=== PATIENT | male | born 1955 | race Caucasian/White ===

== ENCOUNTER 2023-08-14 16:14 | Observation (INO) ==
--- NOTE | 2023-08-14 16:25 | ED Triage Note ---
Date of Service August 14, 2023 History of Present Illness This patient was briefly evaluated while in triage. An abbreviated physical exam was performed. This patient is a 68-year-old Male who presents to the ED for evaluation of hx of COPD, HTN Was at the MD today for recent COPD exacerbation-sats were low in the office sent here by the doctor patient feels well-better than 5 weeks ago when he was admitted no on chronic oxygen Physical Exam GENERAL: NAD, sats 88-89% CARDIOVASCULAR: RRR RESPIRATORY: diminished but CTA ABDOMEN: BS x 4. Nontender to palpation. Initial orders for labs and / or imaging were placed and patient was placed in the waiting area until a bed is available. Please see further documentation for the full ED course.
--- NOTE | 2023-08-14 17:10 | XRay Report ---
XR chest 1V not portable CLINICAL HISTORY: SOB TECHNIQUE: Single frontal radiograph of the chest was obtained. Comparison: Comparison is made to chest radiograph 07/02/2023 FINDINGS: No lines and tubes are seen. Calcified aortic knob is seen. The lungs are clear. No evidence of pleur al effusion or pneumothorax. IMPRESSION: No acute abnormalities and in particular no radiographic evidence of pneumonia. ACT 112: Negative or not required by law. Electronically signed by: Chase Lambert M.D. 08/14/2023 5:09 PM
[2023-08-14 18:17] LABS: Basophils # (auto) 0.05 K/uL (0.00-0.20); Basophils % (auto) 0.9 %; Eosinophils # (auto) 0.09 K/uL (0.00-0.50); Eosinophils % (auto) 1.6 %; Hematocrit (blood only) 42.9 % (42.0-52.0); Hemoglobin 14.6 g/dl (14.0-18.0); Immature Granulocytes # (auto) 0.03 K/uL (0.01-0.20); Immature Granulocytes % (auto) 0.5 %; Lymphocytes # (auto) 1.19 K/uL (1.20-3.40); Lymphocytes % (auto) 21.8 %; Mean Corpuscular Hemoglobin 31.9 pg (25.0-34.0); Mean Corpuscular Volume 93.9 fL (80.0-100.0); Mean Platelet Volume 9.3 fL (9.4-12.4); Monocytes # (auto) 0.65 K/uL (0.11-0.59); Monocytes % (auto) 11.9 %; Neutrophils # (auto) 3.46 K/uL (1.40-6.50); Neutrophils % (auto) 63.3 %; Platelet Count 178 K/uL (130-400); RDW Coefficient of Variation 12.9 % (11.5-14.5); RDW Standard Deviation 44.3 fL (36.4-46.3); Red Blood Count 4.57 M/uL (4.70-6.10); White Blood Count 5.47 K/ul (4.8-10.8)
[2023-08-14 18:37] LABS: Alanine Aminotransferase 24 U/L (7-52); Albumin Globulin Ratio 1.3 (0.9-2); Alkaline Phosphatase 76 U/L (34-104); Anion Gap 4 (3-11); Aspartate Aminotransferase 28 U/L (13-39); BUN Creatinine Ratio 21.1 (10-20); Bilirubin,Total 0.5 mg/dl (0.2-1.0); Blood Urea Nitrogen 15 mg/dl (6-23); Calcium 9.5 mg/dl (8.6-10.3); Carbon Dioxide 32 mmol/L (21-32); Chloride 102 mmol/L (98-107); Est GFR (Non-African American) 95.7 ml/min; Globulin 3.1 gm/dl (2.5-4.0); Glucose 77 mg/dl (70-99(Fasting)); Potassium 4.1 mmol/L (3.5-5.1); Sodium 138 mmol/L (136-145); Total Protein 7.1 gm/dl (6.0-8.3)
[2023-08-14 18:43] LABS: Troponin I High Sensitivity 5.7 pg/ml (0-20)
[2023-08-14] MEDS ORDERED: ALBUT/IPRATROP 3MG/0.5MG NEB 3 ML VIAL NEB ONE ×2 (19:48→21:29)
[2023-08-14] MEDS ORDERED: methylPREDNISolone 125 MG/2 ML VIAL IV STA (19:48)
[2023-08-14] MEDS ORDERED: MAGNESIUM SULFATE / D5W 1 GM/100 ML BAG IV STA (19:49)
--- NOTE | 2023-08-14 20:41 | Emergency Department Note ---
Impression & Plan Acute respiratory failure with hypoxia, COPD with emphysema, Current smoker ED Provider Note NAME: RADHA SANDERS AGE: 68 SEX: M : 1955 ARRIVES VIA: Walk-In INFORMANT: Patient, ED PROVIDER(S): Rei Bob MD CHIEF COMPLAINT: Shortness of breath, outpatient referral MEDICAL DECISION MAKING: Patient presents due to concern for shortness of breath and associated outpatient referral for hypoxia. Next IV was established and blood work was obtained along with an EKG troponin chest x-ray. The patient's blood work is fairly unremarkable. Triage PO2 was 88%. Patient was ordered DuoNeb treatment as well as IV steroids and magnesium. Patient was also ordered IV fluids. Blood work shows a normal white count H&H and platelet count. Kidney function is unremarkable with mild prerenal azotemia LFTs troponin negative. Patient was reassessed after he did receive his breathing treatments and was noted to be hypoxic at 85% was placed on supplemental nasal cannula. Patient was discussed with the inpatient medicine service Dr. Costa and the patient was admitted to the medicine service. Critical Care: I have personally spent 36 minutes of critical care time in direct management of this patient. This includes bedside care, interpretation of diagnostic studies, and testing, discussion with consultants, patient, and family members, and other require inpatient management activities. This 36 minutes is in excess of all separately billable procedures. Discussion w/ other healthcare providers: Dr. Costa inpatient medicine service Prior /Outside records reviewed: I did review a PCP visit that was completed prior to arrival with a noted the patient was hypoxic. Patient was seen by Irene Torres. Differential diagnosis: Reactive airway disease, pneumonia, pneumothorax, COPD, CHF, ACS, pulmonary embolism, musculoskeletal, GERD as well as other pathologies were considered. Diagnostics, as interpreted by me: ECG: Normal sinus rhythm, rate 67, normal Cardiac monitoring: An order was placed for continuous cardiac monitoring. The monitor shows a rate of 88 with sinus rhythm. Patient was placed on pulse oximetry Medical decision rules: none Imaging studies: I informally interpreted the patient's chest x-ray which does not show obvious pneumonia or pneumothorax with formal report to follow. HPI: Patient presents due to concern for shortness of breath. The patient states that he has been having ongoing shortness of breath for the last 5 weeks that seem to worsen just in the last several days. The patient was seen by Dr. Cardoza. Patient reportedly had lower oxygen saturation in the office and thus was referred here for further evaluation and treatment. The patient states that he does take telmisartan for blood pressure. Patient states that he has had some exertional shortness of breath but does feel improved compared to before. Patient denies any falls or trauma. Patient denies any cough. 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 Patient states that when he does the walk to and from that he does get quite winded. PAST MEDICAL HISTORY: See Below PAST SURGICAL HISTORY: See Below SOCIAL HISTORY: See Below HOME MEDICATIONS: See Below ALLERGIES: See Below VITALS: See Below PHYSICAL EXAMINATION: GENERAL: NAD, non-toxic. EYE EXAM: Normal conjunctiva. PERRL, no anisocoria and EOM's grossly intact w/o pain. OROPHARYNX: Moist mucus membranes, grossly normal dentition. NECK: Supple, no nuchal rigidity, no adenopathy, non-tender. No signs of meningismus. FROM of the neck with good chin to chest and neck extension. No stridor. LUNGS: Slight decreased breath sounds without significant wheezing. Normal chest wall mechanics. HEART: NSR, no MRG. ABDOMEN: Abdomen soft, non-tender, no masses, no rebound or guarding. BACK: No CVA TTP. SKIN: No rashes and no bruising. UPPER EXTREMITIES: Upper extremities are grossly normal. LOWER EXTREMITIES: Grossly normal, no edema. NEURO EXAM: A&O x3, cranial nerves II-XII grossly intact, normal speech, moves all 4 extremities. Past Med/Surg History Medical History History of tobacco use disorder HTN (hypertension) Surgical History No significant past surgical history Family History Mother Hypertension Father Cancer Other No significant family history Denies family history of Ovarian cancer Prostate cancer Breast cancer Lung cancer Colorectal cancer Social History Smoking Status: Former smoker Tobacco Type: Cigarettes Cigarettes Per Day: 1 pack per day - quit 2 weeks ago; Do You Dip or Chew Tobacco: No; Hx Alcohol Use: No Hx Substance Use: No Preferred Language: Gambian Communication Ability: Effective Visual Impairment: No Limitations Hearing Ability: Normal System Dispatcher Required: No Beliefs That Will Affect Care: None marital status: Current Living Situation: Alone current occupational status: employed current occupation: [employer] How many Children do You have: 2 Feels Safe at Home: Yes caffeine: Yes Dental Care, Regularly: No Physical Activity Frequency: Daily Seatbelt Use: always Sunscreen Use: Yes Assistive Devices: None Allergies Allergies Allergy/AdvReac Type Severity Reaction Status Date / Time No Known Allergies Allergy Verified 08/16/23 09:17 Home Meds Previous Rx's Medication Instructions Recorded albuterol sulfate 90 mcg/actuation 1 inh inhalation Q6H PRN shortness 07/03/23 breath activated powder inhaler of breath or wheezing #1 ea telmisartan 20 mg tablet 20 mg PO DAILY #90 tabs 07/25/23 azithromycin 250 mg tablet 250 mg PO Q24H #4 tabs 08/15/23 budesonide 0.5 mg/2 mL suspension 0.5 mg (2 mL) NEB BIDR #30 mL 08/15/23 for nebulization ipratropium 0.5 mg-albuterol 3 mg 3 ml NEB QIDR #50 mL 08/15/23 (2.5 mg base)/3 mL nebulization soln loratadine 10 mg tablet (Claritin) 10 mg PO DAILY #30 tabs 08/15/23 prednisone 20 mg tablet 40 mg (2 x 20 mg) PO DAILY #6 tabs 08/15/23 Results & Data (ED) Vital Signs Vital Signs - 24 hr 08/14/23 16:22 08/14/23 20:02 08/14/23 20:02 Temperature 36.8 C Temperature Source Temporal Artery Scan Pulse Rate 78 71 Respiratory Rate 18 Blood Pressure 205/117 H Blood Pressure Mean 146 Pulse Oximetry 89 L 92 Oxygen Delivery Method Room Air Room Air Sepsis Recent Fever Within 48 Hours No Sepsis New/Unexplained Change in Mental Status No Sepsis Action Taken by Nursing No Action Required Home Medications Current Medication List: was personally reviewed by me Laboratory Data Attestation: I reviewed the patient's lab results. 08/15/23 04:10 08/15/23 04:10 Lab Results 11/15/23 Range/Units 17:52 WBC 5.47 (4.8-10.8) K/ul RBC 4.57 L (4.70-6.10) M/uL Hgb 14.6 (14.0-18.0) g/dl Hct 42.9 (42.0-52.0) % MCV 93.9 (80.0-100.0) fL MCH 31.9 (25.0-34.0) pg MCHC 34.0 (32.0-36.0) g/dL RDW Std Deviation 44.3 (36.4-46.3) fL RDW Coeff of Cayla 12.9 (11.5-14.5) % Plt Count 178 (130-400) K/uL MPV 9.3 L (9.4-12.4) fL Immature Gran % (Auto) 0.5 % Neut % (Auto) 63.3 % Lymph % (Auto) 21.8 % Rich % (Auto) 11.9 % Eos % (Auto) 1.6 % Baso % (Auto) 0.9 % Neut # (Auto) 3.46 (1.40-6.50) K/uL Lymph # (Auto) 1.19 L (1.20-3.40) K/uL Rich # (Auto) 0.65 H (0.11-0.59) K/uL Eos # (Auto) 0.09 (0.00-0.50) K/uL Baso # (Auto) 0.05 (0.00-0.20) K/uL Immature Gran # (Auto) 0.03 (0.01-0.20) K/uL Sodium 138 (136-145) mmol/L Potassium 4.1 (3.5-5.1) mmol/L Chloride 102 (98-107) mmol/L Carbon Dioxide 32 (21-32) mmol/L Anion Gap 4 (3-11) BUN 15 (6-23) mg/dl Creatinine 0.71 (0.6-1.4) mg/dl Est Cr Clr Drug Dosing Not Reportable Est GFR ( Amer) 111.0 ml/min Est GFR (Non-Af Amer) 95.7 ml/min BUN/Creatinine Ratio 21.1 H (10-20) Glucose 77 (70-99(Fasting)) mg/dl Calcium 9.5 (8.6-10.3) mg/dl Total Bilirubin 0.5 (0.2-1.0) mg/dl AST 28 (13-39) U/L ALT 24 (7-52) U/L Alkaline Phosphatase 76 (34-104) U/L Troponin I High Sens 5.7 (0-20) pg/ml Total Protein 7.1 (6.0-8.3) gm/dl Albumin 4.0 (3.4-5.0) gm/dl Globulin 3.1 (2.5-4.0) gm/dl Albumin/Globulin Ratio 1.3 (0.9-2) Administered Medications Discontinued Medications Albuterol (Albut/Ipratrop 3mg/0.5mg Neb 3 Ml Vial) 12 ml NEB ONE ONE; Protocol Stop: 08/14/23 19:49 Last Admin: 08/14/23 20:21 Dose: 12 ml Documented By: MELISSA Albuterol (Albut/Ipratrop 3mg/0.5mg Neb 3 Ml Vial) 12 ml NEB ONE ONE; Protocol Stop: 08/14/23 21:30 Last Admin: 08/14/23 21:45 Dose: Not Given Documented By: MELISSA Albuterol (Albut/Ipratrop 3mg/0.5mg Neb 3 Ml Vial) 3 ml NEB QIDR NARCISO; Protocol Stop: 09/14/23 06:59 Last Admin: 08/15/23 14:49 Dose: 3 ml Documented By: Admin: 08/15/23 10:48 Dose: 3 ml Documented By: Admin: 08/15/23 07:10 Dose: 3 ml Documented By: RENU Budesonide (Budesonide 0.5 Mg/2 Ml Vial (Pulmicort)) 0.5 mg NEB BIDR NARCISO Stop: 09/14/23 06:59 Last Admin: 08/15/23 07:11 Dose: 0.5 mg Documented By: RENU Famotidine (Famotidine 20 Mg Tab) 20 mg PO NOW STA Stop: 08/15/23 01:18 Last Admin: 08/15/23 05:45 Dose: Not Given Documented By: DESIREE Guaifenesin (Guaifenesin 600 Mg Tabcr) 1,200 mg PO Q12 NARCISO Stop: 09/14/23 08:59 Last Admin: 08/15/23 08:26 Dose: 1,200 mg Documented By: MARKO Hydralazine HCl (Hydralazine Hcl 20 Mg/Ml Vial) 10 mg IV Q4H PRN PRN Reason: SBP above 160 Stop: 09/13/23 21:53 Last Admin: 08/14/23 22:06 Dose: 10 mg Documented By: MELISSA Magnesium Sulfate/Dextrose (Magnesium Sulfate / D5w) 1 gm in 100 mls @ 300 mls/hr IV NOW STA Stop: 08/14/23 20:08 Last Infusion: 08/14/23 21:07 Dose: Infused Documented By: Admin: 08/14/23 20:00 Dose: 300 mls/hr Documented By: MARLON Methylprednisolone 40 mg/ (Syringe) 0.64 mls @ 1.5 mls/min IV Q8H NARCISO Stop: 09/14/23 05:59 Last Admin: 08/15/23 13:38 Dose: 1.5 mls/min Documented By: Admin: 08/15/23 05:45 Dose: 1.5 mls/min Documented By: DESIREE Azithromycin 500 mg/ Dextrose 255 mls @ 127.5 mls/hr IV Q24H NARCISO Stop: 08/22/23 02:29 Last Infusion: 08/15/23 05:10 Dose: Infused Documented By: Admin: 08/15/23 03:06 Dose: 127.5 mls/hr Documented By: DESIREE Influenza Virus Vaccine (Influenza Vaccine High-Dose (Hd-Iiv4) Pf 65+ 0.7ml Syr) 0.7 ml IM .ONCE ONE Stop: 08/15/23 09:01 Last Admin: 08/15/23 14:59 Dose: Not Given Documented By: OL Loratadine (Loratadine 10 Mg Tab) 10 mg PO DAILY NARCISO Stop: 09/14/23 08:59 Last Admin: 08/15/23 08:26 Dose: 10 mg Documented By: MARKO Losartan Potassium (Losartan Potassium 25 Mg Tab) 25 mg PO DAILY NARCISO Stop: 09/14/23 08:59 Last Admin: 08/15/23 08:26 Dose: 25 mg Documented By: MARKO Methylprednisolone (Methylprednisolone 125 Mg/2 Ml Vial) 125 mg IV NOW STA Stop: 08/14/23 19:49 Last Admin: 08/14/23 20:00 Dose: 125 mg Documented By: MARLON Pneumococcal 20-Valent Conj Vacc (Pneumococcal Vaccine (Pcv20) 20-Pinky Conj-Dip Crm/Pf 0.5 Ml Syr) 0.5 ml IM .ONCE ONE Stop: 08/15/23 09:01 Last Admin: 08/15/23 15:39 Dose: Not Given Documented By: OL Umeclidinium/Vilanterol (Umeclidinium/Vilanterol 62.5/25mcg 7 Puffs/Inhaler) 1 puffs INH DAILY NARCISO Stop: 09/14/23 08:59 Last Admin: 08/15/23 08:26 Dose: 1 puffs Documented By: SLB Imaging Data Radiologist's Impression: Chest X-Ray 08/14/23 16:26 XR chest 1V not portable CLINICAL HISTORY: SOB TECHNIQUE: Single frontal radiograph of the chest was obtained. Comparison: Comparison is made to chest radiograph 07/02/2023 FINDINGS: No lines and tubes are seen. Calcified aortic knob is seen. The lungs are clear. No evidence of pleural effusion or pneumothorax. IMPRESSION: No acute abnormalities and in particular no radiographic evidence of pneumonia. ACT 112: Negative or not required by law. Electronically signed by: Chase Lambert M.D. 08/14/2023 5:09 PM Discharge Plan Visit Data Chief Complaint: Shortness of Breath/Dyspnea Stated Complaint: COPD, SOB ED Provider: Rei Bob Discharge Problem: Acute respiratory failure with hypoxia, COPD with emphysema, Current smoker Patient Disposition: Admitted As Inpatient Discharge Instructions Interventions: ED Discharge Assessment Last Done: 08/15/23 01:59 Discharge Problem: COPD with emphysema Qualifiers: Emphysema type: unspecified Qualified Code(s): J43.9 - Emphysema, unspecified
[2023-08-14] MEDS ORDERED: hydrALAZINE HCL 20 MG/ML VIAL IV PRN (21:54)
--- NOTE | 2023-08-14 23:32 | History & Physical Report ---
Date of Service August 14, 2023 Assessment & Plan (1) Pulmonary nodule: (2) COPD with emphysema: (3) HTN (hypertension): (4) Acute on chronic respiratory failure with hypoxia: (5) History of tobacco use disorder: Plan Acute on chronic respiratory failure with hypoxia/COPD with emphysema/tobacco use history- Admit to medical telemetry Given Solu-Medrol 125 mg IV, magnesium sulfate 1 g IV and a 1 hour-long DuoNeb treatment by the ED Solu-Medrol 40 mg IV every 8 hours Duonebs every 4 hours while awake and every 2 hours when necessary. Methylprednisolone 40 mg IV every 8 hours Guaifenesin extended release 1200 mg p.o. twice daily Pulse ox was 88% on room air, placed on nasal cannula oxygen to titrate for pulse ox of 92% I do not think the patient can take a deep enough breath for either his Anoro Ellipta or albuterol sulfate inhalers to work Suspect he would likely benefit from having a home nebulizer unit with DuoNebs and Pulmicort Respules to use at home Hypertension- Continue telmisartan 20 mg daily Hydralazine 10 mg IV every 4 hours as needed for systolic blood pressure above 160 Tobacco use disorder- Cessation as noted in June History of Present Illness Chief Complaint: The patient was referred to the emergency department, after having been seen in his PCPs office earlier in the day for shortness of breath, and found to be hypoxic Primary Care Provider: Cb Cardoza DO The patient is a 68-year-old male with a past medical history including hypertension, COPD with emphysema, pulmonary nodule, smoking history, and admission from 07/02-07/03/2023 for hypoxia. 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 Allergies Allergy/AdvReac Type Severity Reaction Status Date / Time No Known Allergies Allergy Verified 08/14/23 21:26 Home Medications Medication Instructions Recorded Confirmed Type albuterol sulfate 90 mcg/actuation 1 inh inhalation Q6H PRN shortness 07/03/23 08/14/23 Rx breath activated powder inhaler of breath or wheezing #1 ea telmisartan 20 mg tablet 20 mg PO DAILY #90 tabs 07/25/23 08/14/23 Rx umeclidinium 62.5 mcg-vilanterol 1 ea inhalation DAILY #60 ea 08/07/23 08/14/23 Rx 25 mcg/actuation powdr for inhalation (Anoro Ellipta) Past Med/Surg History Medical History (Updated 08/14/23 @ 23:52 by Gael Burgos MD) History of tobacco use disorder HTN (hypertension) Surgical History No significant past surgical history Family History Mother Hypertension Father Cancer Other No significant family history Denies family history of Ovarian cancer Prostate cancer Breast cancer Lung cancer Colorectal cancer Social History Smoking Status: Former smoker Tobacco Type: Cigarettes Cigarettes Per Day: 1 pack per day - quit 2 weeks ago; Do You Dip or Chew Tobacco: No; Hx Alcohol Use: No Hx Substance Use: No Preferred Language: Kyrgyz Communication Ability: Effective Visual Impairment: No Limitations Hearing Ability: Normal Integration Manager Required: No Beliefs That Will Affect Care: None marital status: Current Living Situation: Alone current occupational status: employed current occupation: [employer] How many Children do You have: 2 Feels Safe at Home: Yes caffeine: Yes Dental Care, Regularly: No Physical Activity Frequency: Daily Seatbelt Use: always Sunscreen Use: Yes Assistive Devices: None Review of Systems Review of Systems: The patient denies chest pain, palpitations, lower extremity swelling, sore throat, fevers, chills, sweats, nausea, vomiting, diarrhea , constipation, abdominal pain, pelvic pain, blood in urine or stool, dysuria, urinary frequency or urgency, lightheadedness, dizziness, headache, memory loss, loss of consciousness, rash, abnormal bruising or bleeding, imbalance, focal or generalized weakness, numbness or tingling in arms or legs, generalized arthralgias or myalgias, back or neck pain, or night sweats. The review of systems is otherwise negative other than for that already noted above, and at least 10 systems have been reviewed. Physical Exam Physical Exam: The patient is awake, alert and oriented 3, well developed and well nourished, normocephalic and atraumatic, lying in bed and in no acute distress. HEENT--PERRL, EOMI, mucous membranes and oropharynx normal. Neck--supple. No JVD. No bruits. Thyroid normal, trachea midline, no adenopathy. Heart--normal S1 and S2. No murmurs, rubs or gallops. Lungs--decreased breath sounds throughout. No respiratory distress, no accessory muscle use. Abdomen--normal bowel sounds and soft. Nontender. Nondistended. Extremities--no cyanosis or clubbing. No edema. Dermatologic--normal skin turgor, normal color, no abnormal lymph nodes, no rash. Neurologic--cranial nerves II through XII grossly intact. Rheumatologic--normal range of motion. Psychiatric--normal affect. Results & Data Results & Data Vital Signs (Past 12 Hours) Vital Signs Temp Pulse Resp BP Pulse Ox O2 Del Method O2 Flow Rate 08/14/23 22:30 103 H 15 90 Nasal Cannula 2 08/14/23 22:06 170/99 H 08/14/23 22:06 88 21 91 08/14/23 22:00 158/90 H 08/14/23 22:00 89 17 90 08/14/23 21:47 92 H 24 91 08/14/23 21:47 181/103 H 08/14/23 21:35 85 L Room Air 0 08/14/23 21:30 96 H 15 93 Nasal Cannula 2 08/14/23 21:00 94 H 23 92 08/14/23 20:30 77 21 98 08/14/23 20:30 194/109 H 08/14/23 20:02 72 19 93 08/14/23 20:02 71 08/14/23 20:02 92 Room Air 08/14/23 16:22 36.8 C 78 18 205/117 H 89 L Room Air Laboratory Results Laboratory Results WBC 5.47 K/ul (4.8-10.8) 08/14/23 17:52 RBC 4.57 M/uL (4.70-6.10) L 08/14/23 17:52 Hgb 14.6 g/dl (14.0-18.0) 08/14/23 17:52 Hct 42.9 % (42.0-52.0) 08/14/23 17:52 MCV 93.9 fL (80.0-100.0) 08/14/23 17:52 MCH 31.9 pg (25.0-34.0) 08/14/23 17:52 MCHC 34.0 g/dL (32.0-36.0) 08/14/23 17:52 RDW Std Deviation 44.3 fL (36.4-46.3) 08/14/23 17:52 RDW Coeff of Cayla 12.9 % (11.5-14.5) 08/14/23 17:52 Plt Count 178 K/uL (130-400) 08/14/23 17:52 MPV 9.3 fL (9.4-12.4) L 08/14/23 17:52 Immature Gran % (Auto) 0.5 % 08/14/23 17:52 Neut % (Auto) 63.3 % 08/14/23 17:52 Lymph % (Auto) 21.8 % 08/14/23 17:52 [place] % (Auto) 11.9 % 08/14/23 17:52 Eos % (Auto) 1.6 % 08/14/23 17:52 Baso % (Auto) 0.9 % 08/14/23 17:52 Neut # (Auto) 3.46 K/uL (1.40-6.50) 08/14/23 17:52 Lymph # (Auto) 1.19 K/uL (1.20-3.40) L 08/14/23 17:52 [place] # (Auto) 0.65 K/uL (0.11-0.59) H 08/14/23 17:52 Eos # (Auto) 0.09 K/uL (0.00-0.50) 08/14/23 17:52 Baso # (Auto) 0.05 K/uL (0.00-0.20) 08/14/23 17:52 Immature Gran # (Auto) 0.03 K/uL (0.01-0.20) 08/14/23 17:52 Sodium 138 mmol/L (136-145) 08/14/23 17:52 Potassium 4.1 mmol/L (3.5-5.1) 08/14/23 17:52 Chloride 102 mmol/L (98-107) 08/14/23 17:52 Carbon Dioxide 32 mmol/L (21-32) 08/14/23 17:52 Anion Gap 4 (3-11) 08/14/23 17:52 BUN 15 mg/dl (6-23) 08/14/23 17:52 Creatinine 0.71 mg/dl (0.6-1.4) 08/14/23 17:52 Est Cr Clr Drug Dosing Not Reportable 08/14/23 17:52 Est GFR ( Amer) 111.0 ml/min 08/14/23 17:52 Est GFR (Non-Af Amer) 95.7 ml/min 08/14/23 17:52 BUN/Creatinine Ratio 21.1 (10-20) H 08/14/23 17:52 Glucose 77 mg/dl (70-99(Fasting)) 08/14/23 17:52 Calcium 9.5 mg/dl (8.6-10.3) 08/14/23 17:52 Total Bilirubin 0.5 mg/dl (0.2-1.0) 08/14/23 17:52 AST 28 U/L (13-39) 08/14/23 17:52 ALT 24 U/L (7-52) 08/14/23 17:52 Alkaline Phosphatase 76 U/L (34-104) 08/14/23 17:52 Troponin I High Sens 5.7 pg/ml (0-20) 08/14/23 17:52 Total Protein 7.1 gm/dl (6.0-8.3) 08/14/23 17:52 Albumin 4.0 gm/dl (3.4-5.0) 08/14/23 17:52 Globulin 3.1 gm/dl (2.5-4.0) 08/14/23 17:52 Albumin/Globulin Ratio 1.3 (0.9-2) 08/14/23 17:52 Impressions Chest X-Ray 08/14/23 16:26 XR chest 1V not portable CLINICAL HISTORY: SOB TECHNIQUE: Single frontal radiograph of the chest was obtained. Comparison: Comparison is made to chest radiograph 07/02/2023 FINDINGS: No lines and tubes are seen. Calcified aortic knob is seen. The lungs are clear. No evidence of pleural effusion or pneumothorax. IMPRESSION: No acute abnormalities and in particular no radiographic evidence of pneumonia. ACT 112: Negative or not required by law. Electronically signed by: Chase Lambert M.D. 08/14/2023 5:09 PM Code Status & VTE Plan Code Status Full code VTE Prophylaxis Plan VTE Prophylaxis will be ordered: Yes PG Care Time/CCT Total # of Minutes Spent Total Time Spent with Patient: Total time spent is greater than 50% in coordination of care (as documented) at patient's floor/unit and/or counseling patient: Coding Level of Care Code 26617 INT INP/OBS CARE 3/75MIN Diagnoses Pulmonary nodule R91.1 COPD with emphysema J43.9 HTN (hypertension) I10 Acute on chronic respiratory failure with hypoxia J96.21 History of tobacco use disorder Z87.891
--- NOTE | 2023-08-14 23:57 | Billing Data ---
Date of Service August 14, 2023 Coding Level of Care Code 47312 INT INP/OBS CARE
[2023-08-15] MEDS ORDERED: FAMOTIDINE 20 MG TAB PO STA (01:17)
[2023-08-15] MEDS ORDERED: ACETAMINOPHEN 325 MG TAB PO PRN (01:59)
[2023-08-15] MEDS ORDERED: ONDANSETRON INJ 2 MG/ML 2 ML VIAL IV PRN (01:59)
[2023-08-15] MEDS ORDERED: AZITHROMYCIN 500 MG in DEXTROSE 5% 250 ML IV SCH (02:30)
[2023-08-15 05:18] LABS: Albumin Globulin Ratio 1.4 (0.9-2); Albumin Level 3.8 gm/dl (3.4-5.0); BUN Creatinine Ratio 23.5 (10-20); Bilirubin,Total 0.5 mg/dl (0.2-1.0); Calcium 9.1 mg/dl (8.6-10.3); Creatinine Clr Calc Pharmacy 95.9 ml/min; Est GFR (African American) 112.9 ml/min; Est GFR (Non-African American) 97.4 ml/min; Globulin 2.8 gm/dl (2.5-4.0); Magnesium 1.9 mg/dl (1.7-2.4); Potassium 3.8 mmol/L (3.5-5.1); Total Protein 6.6 gm/dl (6.0-8.3)
[2023-08-15 05:26] LABS: Hematocrit (blood only) 41.1 % (42.0-52.0); Mean Corpuscular Hemoglobin 32.7 pg (25.0-34.0); Mean Corpuscular Hgb Conc 34.1 g/dL (32.0-36.0); Mean Platelet Volume 9.5 fL (9.4-12.4); Platelet Count 166 K/uL (130-400); RDW Standard Deviation 45.7 fL (36.4-46.3); Red Blood Count 4.28 M/uL (4.70-6.10); White Blood Count 4.12 K/ul (4.8-10.8)
[2023-08-15] MEDS: methylPREDNISolone 40 MG in SYRINGE 0 ML IV SCH ×2 (05:45→13:38)
[2023-08-15 06:13] LABS: Basophils # (auto) 0.01 K/uL (0.00-0.20); Basophils % (auto) 0.2 %; Immature Granulocytes # (auto) 0.02 K/uL (0.01-0.20); Immature Granulocytes % (auto) 0.5 %; Lymphocytes % (auto) 7.3 %; Monocytes # (auto) 0.03 K/uL (0.11-0.59); Monocytes % (auto) 0.7 %; Neutrophils # (auto) 3.76 K/uL (1.40-6.50); Neutrophils % (auto) 91.3 %
[2023-08-15] MEDS ORDERED: BUDESONIDE 0.5 MG/2 ML VIAL (PULMICORT) NEB SCH ×2 (07:00)
[2023-08-15] MEDS: ALBUT/IPRATROP 3MG/0.5MG NEB 3 ML VIAL NEB SCH ×3 (07:10→14:49)
--- NOTE | 2023-08-15 08:43 | Electrocardiogram Report ---
Test Reason : Blood Pressure : / mmHG Vent. Rate : 067 BPM Atrial Rate : 067 BPM P-R Int : 144 ms QRS Dur : 078 ms QT Int : 430 ms P-R-T Axes : 073 073 075 degrees QTc Int : 454 ms Normal sinus rhythm Minimal voltage criteria for LVH, may be normal variant ( Sokolow-[place] ) Borderline ECG When compared with ECG of 02-JUL-2023 18:26, No significant change was found Confirmed by Saad Murray ([id number]) on 08/15/2023 8:43:07 AM Referred By: Cb Cardoza Confirmed By:Saad Murray
--- NOTE | 2023-08-15 08:44 | Hospitalist Progress Note ---
Date of Service August 15, 2023 Assessment & Plan (1) Pulmonary nodule: (2) COPD with emphysema: (3) HTN (hypertension): (4) Acute on chronic respiratory failure with hypoxia: (5) History of tobacco use disorder: Plan Acute on chronic respiratory failure with hypoxia/COPD with emphysema/tobacco use history- Admit to medical telemetry Given Solu-Medrol 125 mg IV, magnesium sulfate 1 g IV and a 1 hour-long DuoNeb treatment by the ED Solu-Medrol 40 mg IV every 8 hours Duonebs every 4 hours while awake and every 2 hours when necessary. Methylprednisolone 40 mg IV every 8 hours Guaifenesin extended release 1200 mg p.o. twice daily Pulse ox was 88% on room air, placed on nasal cannula oxygen to titrate for pulse ox of 92% I do not think the patient can take a deep enough breath for either his Anoro Ellipta or albuterol sulfate inhalers to work Suspect he would likely benefit from having a home nebulizer unit with DuoNebs and Pulmicort Respules to use at home Hypertension- Continue telmisartan 20 mg daily Hydralazine 10 mg IV every 4 hours as needed for systolic blood pressure above 160 Tobacco use disorder- Cessation as noted in June Admission and Anticipated Discharge Date Admission Date: August 15, 2023 Physical Exam Physical Exam: The patient is awake, alert and oriented 3, well developed and well nourished, normocephalic and atraumatic, lying in bed and in no acute distress. HEENT--PERRL, EOMI, mucous membranes and oropharynx normal. Neck--supple. No JVD. No bruits. Thyroid normal, trachea midline, no adenopathy. Heart--normal S1 and S2. No murmurs, rubs or gallops. Lungs--decreased breath sounds throughout. No respiratory distress, no accessory muscle use. Abdomen--normal bowel sounds and soft. Nontender. Nondistended. Extremities--no cyanosis or clubbing. No edema. Dermatologic--normal skin turgor, normal color, no abnormal lymph nodes, no rash. Neurologic--cranial nerves II through XII grossly intact. Rheumatologic--normal range of motion. Psychiatric--normal affect. Results & Data Results & Data Vital Signs (Past 12 Hours) Vital Signs Pulse Pulse Resp BP BP Pulse Ox Pulse Ox 08/15/23 08:29 91 H 18 163/89 H 95 08/15/23 07:11 74 18 95 08/15/23 07:04 86 08/15/23 05:30 76 18 95 08/15/23 05:00 93 H 15 97 08/15/23 05:00 155/94 H 08/15/23 04:30 75 17 94 08/15/23 04:26 08/15/23 04:00 79 19 93 08/15/23 03:30 85 14 95 08/15/23 03:00 77 12 94 08/15/23 03:00 137/82 08/15/23 02:30 76 13 92 08/15/23 02:00 81 12 93 08/15/23 02:00 145/80 H 08/15/23 02:00 92 08/15/23 01:30 84 21 92 08/15/23 01:00 89 17 93 08/15/23 01:00 135/79 08/15/23 00:30 91 H 22 92 08/15/23 00:00 91 H 08/15/23 00:00 92 H 19 92 08/15/23 00:00 100/81 08/14/23 23:30 94 H 17 93 08/14/23 23:00 136/102 H 08/14/23 23:00 96 H 20 93 08/14/23 22:30 103 H 15 90 08/14/23 22:06 170/99 H 08/14/23 22:06 88 21 91 08/14/23 22:00 158/90 H 08/14/23 22:00 89 17 90 08/14/23 21:47 92 H 24 91 08/14/23 21:47 181/103 H 08/14/23 21:35 85 L 08/14/23 21:30 96 H 15 93 08/14/23 21:00 94 H 23 92 O2 Del Method O2 Del Method O2 Flow Rate 08/15/23 08:29 Nasal Cannula 2 08/15/23 07:11 Nasal Cannula 2 08/15/23 07:04 08/15/23 05:30 Nasal Cannula 2 08/15/23 05:00 Nasal Cannula 2 08/15/23 05:00 08/15/23 04:30 08/15/23 04:26 Nasal Cannula 2 08/15/23 04:00 08/15/23 03:30 08/15/23 03:00 08/15/23 03:00 08/15/23 02:30 08/15/23 02:00 08/15/23 02:00 08/15/23 02:00 Nasal Cannula 08/15/23 01:30 08/15/23 01:00 08/15/23 01:00 08/15/23 00:30 08/15/23 00:00 08/15/23 00:00 08/15/23 00:00 08/14/23 23:30 08/14/23 23:00 08/14/23 23:00 08/14/23 22:30 Nasal Cannula 2 08/14/23 22:06 08/14/23 22:06 08/14/23 22:00 08/14/23 22:00 08/14/23 21:47 08/14/23 21:47 08/14/23 21:35 Room Air 0 08/14/23 21:30 Nasal Cannula 2 08/14/23 21:00
[2023-08-15] MEDS ORDERED: guaiFENesin 600 MG TABCR PO SCH (09:00)
[2023-08-15] MEDS ORDERED: UMECLIDINIUM/VILANTEROL 62.5/25MCG 7 PUFFS/INHALER INH SCH (09:00)
[2023-08-15] MEDS ORDERED: PNEUMOCOCCAL VACCINE (PCV20) 20-VAL CONJ-DIP CRM/PF 0.5 ML SYR IM ONE (09:00)
[2023-08-15] MEDS ORDERED: LOSARTAN POTASSIUM 25 MG TAB PO SCH (09:00)
[2023-08-15] MEDS ORDERED: LORATADINE 10 MG TAB PO SCH (09:00)
[2023-08-15] MEDS ORDERED: INFLUENZA VACCINE HIGH-DOSE (HD-IIV4) PF 65+ 0.7mL SYR IM ONE (09:00)
--- NOTE | 2023-08-15 15:34 | Discharge Summary ---
Date of Service August 15, 2023 Admission HPI Per Admitting Provider The patient is a 68-year-old male with a past medical history including hypertension, COPD with emphysema, pulmonary nodule, smoking history, and admission from 07/02-07/03/2023 for hypoxia. 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 Admission Exam Per Admitting Provider The patient is awake, alert and oriented 3, well developed and well nourished, normocephalic and atraumatic, lying in bed and in no acute distress. HEENT--PERRL, EOMI, mucous membranes and oropharynx normal. Neck--supple. No JVD. No bruits. Thyroid normal, trachea midline, no adenopathy. Heart--normal S1 and S2. No murmurs, rubs or gallops. Lungs--decreased breath sounds throughout. No respiratory distress, no accessory muscle use. Abdomen--normal bowel sounds and soft. Nontender. Nondistended. Extremities--no cyanosis or clubbing. No edema. Dermatologic--normal skin turgor, normal color, no abnormal lymph nodes, no rash. Neurologic--cranial nerves II through XII grossly intact. Rheumatologic--normal range of motion. Psychiatric--normal affect. Principal Diagnosis COPD exacerbation Discharge Exam Gen: well appearing male in NAD, lying comfortably in bed HEENT: AT NC MMM Neck: trachea midline, normal visual inspection CV: RRR no m/r/g/ clinically well perfused Resp: decreased breath sounds throughout, quiet wheezing heard bilaterally, no increased work of breahting Abd: soft, non-tender, non-distended MSK: no obvious deformities Skin: no rashes or bruising noted Neuro: alert and oriented Psych: appropriate mood and affect Discharge Data Allergies Allergy/AdvReac Type Severity Reaction Status Date / Time No Known Allergies Allergy Verified 08/14/23 21:26 Consultations 08/14/23 21:29 ED Decision to Admit Stat Ordered Studies Chest X-Ray 08/14/23 16:26 FINDINGS: No lines and tubes are seen. Calcified aortic knob is seen. The lungs are clear. No evidence of pleural effusion or pneumothorax. IMPRESSION: No acute abnormalities and in particular no radiographic evidence of pneumonia. Hospital Course (1) Pulmonary nodule: #Acute on chronic respiratory failure with hypoxia/COPD with emphysema/tobacco use history Patient with suboptimal baseline O2 at outpatient visit. Sent to ED for presumed COPD exacerbation. Treated with supplemental oxygen, duo/nebs, azithromycin, mag, and Solu-Medrol. Patient with significant improvement in oxygenation status to room air with no oxygen required for ambulation. Exam likely at baseline. Patient with poor inspiratory effort and air movement. Patient likely benefit from ICS in neb form due to his poor respiratory effort. Will order Duonebs and BID Pulmicort Respules in addition to nebulizer machine. Stable for discharge. Sent home with 40 mg pred QD x 3 and Azithromycin x 4 for a total of 5 days total of each. PFTs ordered. Patient to follow up with pulmonology. #Hypertension- Continue telmisartan 20 mg daily. Hydralazine 10 mg IV every 4 hours as needed for systolic blood pressure above 160 #Tobacco use disorder- Cessation as noted in June (2) COPD with emphysema: (3) HTN (hypertension): (4) Acute on chronic respiratory failure with hypoxia: (5) History of tobacco use disorder: Total Time Total Time Spent Total Time Spent (In Minutes): See attending attestation Discharge Plan Discharge Items Patient Disposition: Home - Self-Care Reason For Visit: ACUTE ON CHRONIC RESP FAILURE W/ HYPOXIA Discharge Diagnosis: copd exacerbation Activity: Per Instructions section Non-emergency contact: Primary Care Provider Call non-emergency contact if: you have any medication questions, your symptoms worsen and your temperature is above 101.5 Follow-up/Referrals: Eder Smith MD, [facility] [Physician] - Cb Cardoza DO [Primary Care Provider] - Diet: Low Sodium (2gm) Addtl Attending Provider Instructions: You were admitted to the hospital for a COPD exacerbation. You were treated with nebulizers, Azithromycin, and steroids. You symptoms improved. You were also given the flu and pneumonia vaccinations while you were here. You were able to walk without dropping your oxygenation status, so you do not need home oxygen at this point. There is concern that you are not able to get the inhaled Anora Ellipta deep enough into your lungs to be effective. We are going to send you home with nebulized home treatments. You will use the budesonide (pulmicort respules) nebulizer every 12 hours instead of the Anora Ellipta. You will use the albuterol/ipratropium nebulizer treatment when you are feeling short of breath or if your oxygen saturation is dropping. If you have an oxygen saturation that does not improve with albuterol/ipratropium nebulization treatment then you will need to return to the ED. In terms of your COPD exacerbation, we will continue with a total of 5 days of Azithromycin and oral steroids. You will take 40 mg prednisone daily for the next three days. A discharge summary will be sent to your primary care physician to ensure continuity of care. Please bring this discharge summary with you to your next office appointment so that your provider can review it at that time. Follow-up appointments: Make a follow-up appointment with your PCP within the next week. It is very important that you follow up with them shortly after discharge from the hospital. We have requested a follow-up appointment with Dr. Smith in pulmonology as well. Please reach out to them to schedule this appointment Medications: Your medication list has been reviewed and reconciled upon discharge to ensure accuracy and continuity of care. An updated list of all your medications is included with your hospital discharge paperwork. Please review this list closely, and make note of any changes. Take your medications as instructed; do not skip a dose of your medicines. Make sure all of your doctors know every medicine you are taking (including azit-wyq-[id number] medicines, vitamins, and supplements). Call your primary care provider before taking any new medicines (including over- the-counter medicines, vitamins, and supplements), because some of these may interact with your current medications, or may make your symptoms worse. Tell your primary care provider if you cannot afford your medications. CONTACT YOUR PRIMARY CARE PROVIDER if you experience any of the following: fevers or chills dizziness or lightheadedness difficulty following your treatment plan, or difficulty taking medications CALL 911 OR GO TO THE EMERGENCY DEPARTMENT if you experience any of the following: Sudden, severe abdominal pain or nausea/vomiting Severe chest pain, or chest pain that radiates (moves) to your jaw or arm Sudden, severe shortness of breath or difficulty breathing Thank you for allowing us to participate in your care Pending Studies at Discharge: No Stand-Alone Forms: My [facility] Medications and DC Order Prescriptions: New ipratropium-albuterol 0.5 mg-3 mg(2.5 mg base)/3 mL Solution For Nebulization 3 ml NEB QIDR Qty: 50 0RF budesonide 0.5 mg/2 mL Suspension For Nebulization 0.5 mg NEB BIDR Qty: 30 0RF loratadine [Claritin] 10 mg tablet 10 mg PO DAILY Qty: 30 1RF prednisone 20 mg tablet 40 mg PO DAILY Qty: 6 0RF azithromycin 250 mg Tablet 250 mg PO Q24H Qty: 4 0RF Continued telmisartan 20 mg tablet 20 mg PO DAILY Qty: 90 1RF albuterol sulfate 90 mcg/actuation aerosol powdr breath activated 1 inh inhalation Q6H PRN (Reason: shortness of breath or wheezing) Qty: 1 0RF Discontinued Anoro Ellipta 62.5-25 mcg/actuation blister with device 1 ea inhalation DAILY Qty: 60 6RF Discharge Orders: Discharge Order (Routine); Ordered 08/15/23 Ordered By: Megan Borges/Other Patient Handouts: Using a Nebulizer (Adult) Admission Data Admit Date/Time: 08/15/23 01:01 Attending Provider: Zhane Isaac Admit Provider: Gael Burgos Primary Care Provider: Cb Cardoza Other Providers: Gael Burgos Other Interventions: Discharge Summary Assessment (RN) Last Done: 08/15/23 16:10 Supervising Physician Co-Signing Physician Notes Resident Physician Supervision Note: I independently interviewed and examined the patient and verified the chung history and physical, reviewed labs and image studies and agree with resident findings and care plan. 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 Understanding of role of using a mask - KN95 or N95 to prevent dust exposure to prevent exacerbations. Resident Activity Tracking Resident Involvement: Resident Care Provided Care Provided: Adult Hospital Medicine
[2023-08-15] MEDS ORDERED: AZITHROMYCIN 250 MG TAB PO SCH (21:00)
== END 2023-08-15 16:20 | disposition home or self-care (01) ==
LOC: ED 16:14 → SUATTDRO 08-15 01:01 → EDINP 08-15 01:01 → INTOOBSV 08-15 01:01 → EDINP 08-15 02:00

== ENCOUNTER 2023-08-28 05:41 | Inpatient (IN) ==
[2023-08-28] MEDS ORDERED: guaiFENesin 600 MG TABCR PO ONE (06:36)
[2023-08-28] MEDS ORDERED: ALBUT/IPRATROP 3MG/0.5MG NEB 3 ML VIAL NEB STA (06:36)
[2023-08-28] MEDS ORDERED: methylPREDNISolone 125 MG/2 ML VIAL IV STA (06:36)
--- NOTE | 2023-08-28 06:43 | Emergency Department Note ---
Impression & Plan COPD with emphysema, Acute on chronic respiratory failure with hypoxia, Influenza A virus subtype H1 2009 pandemic strain present ED Provider Note Provider: Pk Landrum MD DATE OF SERVICE: 08/28/2023 CHIEF COMPLAINT: Shortness of breath, low oxygen HISTORY OF PRESENT ILLNESS: Patient is a 68-year-old gentleman past medical history of hypertension and COPD presenting due to development of a cough and worsening shortness of breathing. Hospitalized here several times over the last several months. Saw PCP approximately a week ago and increased his blood pressure medicine. Also change of respiratory medications by his report and states he is gone back on Anoro and as needed DuoNebs only. Patient states that he has not had sick contact but is having a mildly productive cough. Denies swelling. Little bit of pain with heavy coughing but denies other significant chest pain. Checked his pulse ox at home and worsening breathing and found resting in the high 70s and with his nebulizer got to just above 80% on room air. Not normally on oxygen. Has been using his nebulizer including using it before coming in this morning. Put on oxygen from triage and having improvement of his breathing and shortness of breath symptoms by his report. Not currently on steroid or antibiotic. PAST MEDICAL HISTORY: As noted above MEDICATIONS: Reviewed home medication SOCIAL HISTORY: States he is not currently smoking due to illness. PHYSICAL EXAM: GENERAL: alert and oriented in no acute distress on stretcher Head: normocephalic and atraumatic EYES: No injection, discharge or icterus. NECK: Trachea midline. ENT: Mucous membranes pink and moist. LUNGS: Airway patent. No retractions slight expiratory wheeze and distant lung sounds. HEART: Regular rate and rhythm. No chest wall tenderness ABDOMEN: Soft and non-tender, without guarding or rebound. SKIN: Acyanotic, warm, dry, without rashes EXTREMITIES: Without swelling, tenderness or deformity NEUROLOGICAL: No focal deficits. No aphasia. No facial droop or slurred speech. Ambulatory. EK bpm normal sinus rhythm. No PVC or PAC. Acute ST segment elevation or depression with a QTc of 474. CONTINUOUS CARDIAC MONITORING: was ordered and showed a heart rate of 90s-100s bpm in normal sinus rhythm to sinus tachycardia Patient's laboratory studies and imaging reviewed. Differential includes Reactive airway disease, pneumonia, pneumothorax, COPD, CHF, infections, cardiac ischemia, pulmonary embolism, musculoskeletal, gastrointestinal, as well as other pathologies. IMPRESSION/MEDICAL DECISION MAKING: Patient with increasing shortness of breath found to be hypoxic on room air. Reviewed discharge summary from August 15 of this year as well as PCPs note from August 21 of this year; was discharged after COPD exacerbation and follow-up on the of primary care and increase of his blood pressure medication as well as restart of Anoro. Patient states he also stopped his budesonide at this time. No sick contacts. Mildly productive cough. Chest x- ray per my interpretation without evidence of obvious pneumonia with emphysematous changes and no evidence of significant fluid overload or pneumothorax. Patient is feeling improved here on 2 L of oxygen however not his baseline. Respiratory viral panel sent as well as basic blood work and blood cultures. We will give a DuoNeb and IV Solu-Medrol here to help with his respiratory symptoms what appears to be COPD exacerbation. No significant leg swelling and in light of symptoms and the x-ray I doubt this is CHF. EKG and troponin sent but lower suspicion for acute ACS given his symptoms and reproducible mild chest discomfort with heavy coughing seems muscular. No significant leg swelling and have low suspicion for DVT and lower suspicion for PE given his underlying severe COPD and quick improvement with slight oxygen supplementation here. Blood work without significant anemia or leukocytosis VBG here without acidosis or severe hypercarbia not compensated lactate normal. Chemistries here without severe electrolyte abnormality or significant signs of renal dysfunction. LFTs normal. Troponin within normal limits again doubt ACS. Respiratory viral panel completed. Again lower suspicion for significant bacterial component to his symptoms and with an undetectable procalcitonin we will hold off on antibiotic coverage at this time. Patient on reassessment states he is feeling a little bit better and is getting a bit of an appetite. Given additional DuoNeb. Laboratory respiratory viral panel returned positive for influenza A H1 2009 variant. Discussed with the patient and onset of symptoms and possible use of Tamiflu. Symptoms started 2 days ago and Tamiflu was ordered. Given his hypoxia and what appears to be COPD exacerbation discussed with the patient staying for further care here. Hospitalist team was contacted. DIAGNOSIS: Acute COPD exacerbation, hypoxia, influenza A DISPOSITION: Hospitalist will evaluate Patient was agreeable with this plan. Past Med/Surg History Medical History History of tobacco use disorder HTN (hypertension) Surgical History No significant past surgical history Family History Mother Hypertension Father Cancer Other No significant family history Denies family history of Ovarian cancer Prostate cancer Breast cancer Lung cancer Colorectal cancer Social History Smoking Status: Former smoker Tobacco Type: Cigarettes Cigarettes Per Day: 1 pack per day - quit 2 weeks ago; Do You Dip or Chew Tobacco: No; Hx Alcohol Use: No Hx Substance Use: No Preferred Language: [place] Communication Ability: Effective Visual Impairment: No Limitations Hearing Ability: Normal Roving Changer Required: No Beliefs That Will Affect Care: None marital status: Current Living Situation: Alone current occupational status: employed current occupation: [employer] How many Children do You have: 2 Feels Safe at Home: Yes caffeine: Yes Dental Care, Regularly: No Physical Activity Frequency: Daily Seatbelt Use: always Sunscreen Use: Yes Assistive Devices: None Allergies Allergies Allergy/AdvReac Type Severity Reaction Status Date / Time No Known Allergies Allergy Verified 08/26/23 14:00 Home Meds Home Medications Medication Instructions Recorded Confirmed telmisartan 20 mg tablet 40 mg PO DAILY 08/28/23 08/28/23 Previous Rx's Medication Instructions Recorded albuterol sulfate 90 mcg/actuation 1 inh inhalation Q6H PRN shortness 07/03/23 breath activated powder inhaler of breath or wheezing #1 ea budesonide 0.5 mg/2 mL suspension 0.5 mg (2 mL) NEB BIDR #30 mL 08/15/23 for nebulization ipratropium 0.5 mg-albuterol 3 mg 3 ml NEB QIDR #50 mL 08/15/23 (2.5 mg base)/3 mL nebulization soln loratadine 10 mg tablet (Claritin) 10 mg PO DAILY #30 tabs 08/15/23 umeclidinium 62.5 mcg-vilanterol 1 inh inhalation DAILY #60 ea 08/21/23 25 mcg/actuation powdr for inhalation (Anoro Ellipta) Results & Data (ED) Vital Signs Vital Signs - 24 hr 08/28/23 05:46 08/28/23 05:59 08/28/23 06:31 Temperature 37.5 C Temperature Source Temporal Artery Scan Pulse Rate 101 H 96 H Pulse Rate [Apical] Respiratory Rate 24 Respiratory Effort / Characteristics Labored Respiratory Pattern Blood Pressure 137/81 Blood Pressure [Right Arm] Blood Pressure Mean 99 Blood Pressure Mean [Right Arm] Pulse Oximetry 85 L 93 Oxygen Delivery Method Room Air Nasal Cannula Oxygen Flow Rate 2 Sepsis Recent Fever Within 48 Hours Yes Sepsis New/Unexplained Change in Mental Status No Sepsis Action Taken by Nursing Physician Notified 08/28/23 06:33 08/28/23 08:00 08/28/23 08:35 Temperature Temperature Source Pulse Rate Pulse Rate [Apical] 94 H 93 H Respiratory Rate 26 H 43 H Respiratory Effort / Characteristics Respiratory Pattern Tachypnea Blood Pressure Blood Pressure [Right Arm] 144/108 H 155/91 H Blood Pressure Mean Blood Pressure Mean [Right Arm] 120 112 Pulse Oximetry 92 92 Oxygen Delivery Method Nasal Cannula Nasal Cannula Nasal Cannula Oxygen Flow Rate 2 2 2 Sepsis Recent Fever Within 48 Hours Sepsis New/Unexplained Change in Mental Status Sepsis Action Taken by Nursing Laboratory Data 08/28/23 06:15 08/28/23 06:15 Lab Results 08/28/23 08/28/23 Range/Units 06:15 06:25 WBC 7.19 (4.8-10.8) K/ul RBC 4.49 L (4.70-6.10) M/uL Hgb 14.2 (14.0-18.0) g/dl Hct 43.2 (42.0-52.0) % MCV 96.2 (80.0-100.0) fL MCH 31.6 (25.0-34.0) pg MCHC 32.9 (32.0-36.0) g/dL RDW Std Deviation 48.0 H (36.4-46.3) fL RDW Coeff of [place]la 13.4 (11.5-14.5) % Plt Count 178 (130-400) K/uL MPV 9.4 (9.4-12.4) fL Immature Gran % (Auto) 0.4 % Neut % (Auto) 82.3 % Lymph % (Auto) 6.3 % [place] % (Auto) 10.3 % Eos % (Auto) 0.3 % Baso % (Auto) 0.4 % Neut # (Auto) 5.92 (1.40-6.50) K/uL Lymph # (Auto) 0.45 L (1.20-3.40) K/uL [place] # (Auto) 0.74 H (0.11-0.59) K/uL Eos # (Auto) 0.02 (0.00-0.50) K/uL Baso # (Auto) 0.03 (0.00-0.20) K/uL Immature Gran # (Auto) 0.03 (0.01-0.20) K/uL PT 10.9 (9.0-12.0) Seconds INR 1.0 (0.9-1.1) APTT 29.6 (21.0-31.0) Seconds PTT Ratio 1.0 VBG pH 7.38 (7.36-7.41) VBG pCO2 56 H (38-50) mmHg VBG pO2 46 mmHg VBG HCO3 33 mmol/L VBG O2 Saturation 77.6 % VBG Base Excess 6.3 mEq/L Sodium 135 L (136-145) mmol/L Potassium 4.1 (3.5-5.1) mmol/L Chloride 99 (98-107) mmol/L Carbon Dioxide 30 (21-32) mmol/L Anion Gap 6 (3-11) BUN 18 (6-23) mg/dl Creatinine 0.64 (0.6-1.4) mg/dl Est Cr Clr Drug Dosing 99.1 ml/min Est GFR ( Amer) 115.8 ml/min Est GFR (Non-Af Amer) 99.9 ml/min BUN/Creatinine Ratio 28.1 H (10-20) Glucose 104 H (70-99(Fasting)) mg/dl Lactate 1.1 (0.4-2.0) mmol/L Calcium 8.8 (8.6-10.3) mg/dl Magnesium 1.8 (1.7-2.4) mg/dl Total Bilirubin 0.9 (0.2-1.0) mg/dl Direct Bilirubin 0.1 (0-0.2) mg/dl AST 31 (13-39) U/L ALT 25 (7-52) U/L Alkaline Phosphatase 91 (34-104) U/L Troponin I High Sens 11.2 (0-20) pg/ml Total Protein 7.1 (6.0-8.3) gm/dl Albumin 4.1 (3.4-5.0) gm/dl Procalcitonin < 0.05 (0-0.5) ng/ml Nasal Influ A H1 2008 PCR DETECTED A* (NotDetected) Adenovirus (PCR) Not Detected (NotDetected) B. pertussis DNA (PCR) Not Detected (NotDetected) B.parapertussis DNA PCR Not Detected (NotDetected) C. pneumoniae DNA (PCR) Not Detected (NotDetected) Coronavirus OC43 (PCR) Not Detected (NotDetected) Coronavirus HKU1 (PCR) Not Detected (NotDetected) Coronavirus 229E (PCR) Not Detected (NotDetected) SARS-CoV-2 (PCR) Not Detected (NotDetected) Coronavirus NL63 (PCR) Not Detected (NotDetected) Human Metapneumovir PCR Not Detected (NotDetected) Influenza Type B (PCR) Not Detected (NotDetected) M. pneumoniae (PCR) Not Detected (NotDetected) Parainfluenza 1 (PCR) Not Detected (NotDetected) Parainfluenza 2 (PCR) Not Detected (NotDetected) Parainfluenza 3 (PCR) Not Detected (NotDetected) Parainfluenza 4 (PCR) Not Detected (NotDetected) RSV (PCR) Not Detected (NotDetected) Entero/Rhino (PCR) Not Detected (NotDetected) Administered Medications Albuterol (Albut/Ipratrop 3mg/0.5mg Neb 3 Ml Vial) 3 ml NEB QIDR NARCISO; Protocol Stop: 09/27/23 11:54 Last Admin: 08/28/23 12:19 Dose: 3 ml Documented By: QUINTEN Discontinued Medications Albuterol (Albut/Ipratrop 3mg/0.5mg Neb 3 Ml Vial) 3 ml NEB NOW STA; Protocol Stop: 08/28/23 06:37 Last Admin: 08/28/23 06:44 Dose: 3 ml Documented By: CECELIA Albuterol (Albut/Ipratrop 3mg/0.5mg Neb 3 Ml Vial) 12 ml NEB ONE ONE; Protocol Stop: 08/28/23 07:27 Last Admin: 08/28/23 08:31 Dose: 12 ml Documented By: BARBARA Guaifenesin (Guaifenesin 600 Mg Tabcr) 1,200 mg PO ONCE ONE Stop: 08/28/23 06:37 Last Admin: 08/28/23 06:44 Dose: 1,200 mg Documented By: CECELIA Methylprednisolone (Methylprednisolone 125 Mg/2 Ml Vial) 125 mg IV NOW STA Stop: 08/28/23 06:37 Last Admin: 08/28/23 06:45 Dose: 125 mg Documented By: CECELIA Oseltamivir Phosphate (Oseltamivir Phosphate 75 Mg Cap) 75 mg PO NOW STA; Protocol Stop: 08/28/23 08:18 Last Admin: 08/28/23 08:32 Dose: 75 mg Documented By: BARBARA Imaging Data Radiologist's Impression: Chest X-Ray 08/28/23 06:00 XR chest 1V portable HISTORY: 68 years-old Male Sepsis acute sepsis COMPARISON: 08/14/2023 TECHNIQUE: AP view of the chest FINDINGS: Cardiac mediastinal and hilar silhouettes are within normal limits. Mild emphysema with chronic interstitial coarsening. Atherosclerosis of the aorta. No pneumothorax, pleural effusion or airspace consolidation. Spondylotic spurring of the spine. IMPRESSION: No acute process. ACT 112: Negative or not required by law. The above report was generated using voice recognition software. It may contain grammatical, syntax or spelling errors. Electronically signed by: Jordan Strange M.D. 08/28/2023 7:27 AM Discharge Plan Visit Data Chief Complaint: Respiratory Problems Stated Complaint: COPD-HAVING TROUBLE BREATHING ED Provider: Pk Landrum Discharge Problem: COPD with emphysema, Acute on chronic respiratory failure with hypoxia, Influenza A virus subtype H1 2009 pandemic strain present Patient Disposition: Being Evaluated by Hospitalist Discharge Instructions Interventions: ED Discharge Assessment Last Done: 08/28/23 11:56 Discharge Problem: COPD with emphysema Qualifiers: Emphysema type: unspecified Qualified Code(s): J43.9 - Emphysema, unspecified
[2023-08-28 06:48] LABS: Base Excess VBG 6.3 mEq/L; HCO3 VBG 33 mmol/L; Oxygen Saturation VBG 77.6 %; PCO2 VBG 56 mmHg (38-50); PO2 VBG 46 mmHg; pH VBG 7.38 (7.36-7.41)
[2023-08-28 06:54] LABS: Basophils # (auto) 0.03 K/uL (0.00-0.20); Basophils % (auto) 0.4 %; Eosinophils # (auto) 0.02 K/uL (0.00-0.50); Eosinophils % (auto) 0.3 %; Hematocrit (blood only) 43.2 % (42.0-52.0); Hemoglobin 14.2 g/dl (14.0-18.0); Immature Granulocytes # (auto) 0.03 K/uL (0.01-0.20); Immature Granulocytes % (auto) 0.4 %; Lymphocytes # (auto) 0.45 K/uL (1.20-3.40); Lymphocytes % (auto) 6.3 %; Mean Corpuscular Hemoglobin 31.6 pg (25.0-34.0); Mean Corpuscular Hgb Conc 32.9 g/dL (32.0-36.0); Mean Corpuscular Volume 96.2 fL (80.0-100.0); Mean Platelet Volume 9.4 fL (9.4-12.4); Monocytes # (auto) 0.74 K/uL (0.11-0.59); Monocytes % (auto) 10.3 %; Neutrophils # (auto) 5.92 K/uL (1.40-6.50); Neutrophils % (auto) 82.3 %; Platelet Count 178 K/uL (130-400); RDW Coefficient of Variation 13.4 % (11.5-14.5); Red Blood Count 4.49 M/uL (4.70-6.10); White Blood Count 7.19 K/ul (4.8-10.8)
[2023-08-28 07:12] LABS: Albumin Level 4.1 gm/dl (3.4-5.0); BUN Creatinine Ratio 28.1 (10-20); Bilirubin Direct 0.1 mg/dl (0-0.2); Bilirubin,Total 0.9 mg/dl (0.2-1.0); Calcium 8.8 mg/dl (8.6-10.3); Creatinine Clr Calc Pharmacy 99.1 ml/min; Est GFR (African American) 115.8 ml/min; Est GFR (Non-African American) 99.9 ml/min; Magnesium 1.8 mg/dl (1.7-2.4); Potassium 4.1 mmol/L (3.5-5.1); Total Protein 7.1 gm/dl (6.0-8.3)
[2023-08-28 07:18] LABS: Troponin I High Sensitivity 11.2 pg/ml (0-20)
[2023-08-28 07:21] LABS: Partial Thromboplastin Time 29.6 Seconds (21.0-31.0); Prothrombin Time 10.9 Seconds (9.0-12.0)
[2023-08-28] MEDS ORDERED: ALBUT/IPRATROP 3MG/0.5MG NEB 3 ML VIAL NEB ONE (07:26)
--- NOTE | 2023-08-28 07:28 | XRay Report ---
XR chest 1V portable HISTORY: 68 years-old Male Sepsis acute sepsis COMPARISON: 08/14/2023 TECHNIQUE: AP view of the chest FINDINGS: Cardiac mediastinal and hilar silhouettes are within normal limits. Mild emphysema with chronic inter stitial coarsening. Atherosclerosis of the aorta. No pneumothorax, pleural effusion or airspace conso lidation. Spondylotic spurring of the spine. IMPRESSION: No acute process. ACT 112: Negative or not required by law. The above report was generated using voice recognition software. It may contain grammatical, syntax o r spelling errors. Electronically signed by: Jordan Strange M.D. 08/28/2023 7:27 AM
[2023-08-28 07:56] LABS: Adenovirus PCR Not Detected (NotDetected); Bordetella parapertussis PCR Not Detected (NotDetected); Bordetella pertussis PCR Not Detected (NotDetected); Chlamydia pneumoniae PCR Not Detected (NotDetected); Coronavirus 229E PCR Not Detected (NotDetected); Coronavirus CoV-2 (COVID19)PCR Not Detected (NotDetected); Coronavirus HKU1 PCR Not Detected (NotDetected); Coronavirus NL63 PCR Not Detected (NotDetected); Coronavirus OC43PCR Not Detected (NotDetected); Human Metapneumovirus PCR Not Detected (NotDetected); Influenza B PCR Not Detected (NotDetected); Mycoplasma pneumoniae PCR Not Detected (NotDetected); Parainfluenza Virus 1 PCR Not Detected (NotDetected); Parainfluenza Virus 2 PCR Not Detected (NotDetected); Parainfluenza Virus 3 PCR Not Detected (NotDetected); Parainfluenza Virus 4 PCR Not Detected (NotDetected); Respiratory Syncytial VirusPCR Not Detected (NotDetected); Rhinovirus/Enterovirus PCR Not Detected (NotDetected)
[2023-08-28 08:13] LABS: Influenza A (H1 2009) PCR DETECTED (NotDetected)
[2023-08-28] MEDS ORDERED: OSELTAMIVIR PHOSPHATE 75 MG CAP PO STA (08:17)
--- NOTE | 2023-08-28 09:14 | History & Physical Report ---
Date of Service August 28, 2023 Assessment & Plan (1) Acute respiratory failure with hypoxia: Plan: caused by acute influenza A infection and acute exacerbation of COPD, appears to have some baseline hypoxia he acknowledges his usual room air O2 sat is around 90% he is not on home oxygen - supplemental oxygen, treatment as below (2) Influenza A virus subtype H1 2009 pandemic strain present: Plan: high risk of complications because of his underlying lung disease, ordered Tamiflu 75 mg twice daily x 5 days -supportive care, IV fluids x 24h ordered, acetaminophen prn fever -states had had influenza vaccine last admission (3) Acute exacerbation of chronic obstructive pulmonary disease (COPD): Plan: Multiple recent admissions for COPD exacerbations At home has budesonide nebs and duonebs, sounds like his control inhaler was stopped to try the nebs, then restarted Anoro recently? -prednisone 40 mg daily -scheduled and prn duonebs -bid budesonide neb -ordered anoro inhaler -he is confused about what he should be doing with his outpatient nebs and inhalers, multiple admissions, thus consulted pulmonary for advice (4) HTN (hypertension): Plan: continue losartan (5) Current smoker: Plan: I think that he has stopped smoking over the past few weeks/months because his breathing is too poor recently, will clarify Plan DVT PPx - enox 40 sq Admission and Anticipated Discharge Date Admission Date: [facility] 08/30 or 08/31, when hypoxia improved History of Present Illness Chief Complaint: Shortness of breath Primary Care Provider: Cb Cardoza, DO 68 y/o with history of COPD / emphysema who presented to the ED with two days of increased cough and hypoxia. He states his O2 sats were in the 70s at home. Reviewed recent PCP note and his baseline is likely 88-90% on room air. In the ED he was 85% on room air and improved to 92% on 2L pnc. he has had multiple admissions since the summer with COPD exacerbations, left the hospital around 2 weeks ago. He was doing fairly well and there were some changes made to his bronchodilators, however that did not seem to help. 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 2 days ago he developed increasing shortness of breath cough and fever. He checked his oxygen level and it was severely low as noted above. Thus he sought care in the emergency department. he says that he felt very wheezy tight and short of breath when he got to the ED, however that had improved somewhat with the ED treatment of IV Solu-Medrol and bronchodilators. He thinks he had his flu shot this year he is not sure about COVID shot. He denies any sick contacts although his cousin who is at the bedside points out that he was at gatherings/meetings over the weekend and he could have gotten exposed there. No chest or abdominal pain, no rashes or joint pain, no N/V/D, no dysuria. Allergies Allergy/AdvReac Type Severity Reaction Status Date / Time No Known Allergies Allergy Verified 08/26/23 14:00 Home Medications Medication Instructions Recorded Confirmed Type albuterol sulfate 90 mcg/actuation 1 inh inhalation Q6H PRN shortness 07/03/23 08/28/23 Rx breath activated powder inhaler of breath or wheezing #1 ea budesonide 0.5 mg/2 mL suspension 0.5 mg (2 mL) NEB BIDR #30 mL 08/15/23 08/28/23 Rx for nebulization ipratropium 0.5 mg-albuterol 3 mg 3 ml NEB QIDR #50 mL 08/15/23 08/28/23 Rx (2.5 mg base)/3 mL nebulization soln loratadine 10 mg tablet (Claritin) 10 mg PO DAILY #30 tabs 08/15/23 08/28/23 Rx umeclidinium 62.5 mcg-vilanterol 1 inh inhalation DAILY #60 ea 08/21/23 08/28/23 Rx 25 mcg/actuation powdr for inhalation (Anoro Ellipta) telmisartan 20 mg tablet 40 mg PO DAILY 08/28/23 08/28/23 History Past Med/Surg History Medical History History of tobacco use disorder HTN (hypertension) Surgical History No significant past surgical history Family History Mother Hypertension Father Cancer Other No significant family history Denies family history of Ovarian cancer Prostate cancer Breast cancer Lung cancer Colorectal cancer Social History Smoking Status: Never smoker Tobacco Type: Cigarettes Cigarettes Per Day: 1 pack per day - quit 2 weeks ago; Do You Dip or Chew Tobacco: No; Hx Alcohol Use: No Hx Substance Use: No Preferred Language: Togolese Communication Ability: Effective Visual Impairment: No Limitations Hearing Ability: Normal Special Events Fundraiser Required: No Beliefs That Will Affect Care: None marital status: Current Living Situation: Alone current occupational status: employed current occupation: [employer] How many Children do You have: 2 Feels Safe at Home: Yes caffeine: Yes Dental Care, Regularly: No Physical Activity Frequency: Daily Seatbelt Use: always Sunscreen Use: Yes Assistive Devices: None Review of Systems Review of Systems: Complete review of systems was negative except as mentioned in HPI above Physical Exam Physical Exam: PHYSICAL EXAMINATION Last 24h vital signs reviewed, see documentation in flowsheet General: comfortable appearing, no distress HEENT: Normocephalic, atraumatic, pupils round and equal, sclerae anicteric, no conjunctival injection, moist mucus membranes Lungs: mildly increased respiratory effort. bibasilar crackles and coarse lung sounds. frequent loose cough. not currently wheezing, seen post neb air movement diminished throughout but fairly good Heart: Regular rate and rhythm, no murmurs. No JVD Abdomen: Soft, nontender, nondistended. Bowel sounds present. Extremities: Warm, dry, well-perfused. No extremity edema. Neuro: Alert and oriented x 4, face symmetric, moves 4 extremities well Psych: Normal affect and behavior Results & Data Results & Data Vital Signs (Past 12 Hours) Vital Signs Temp Pulse Pulse Resp BP BP Pulse Ox 08/28/23 08:35 08/28/23 08:00 93 H 43 H 155/91 H 92 08/28/23 06:33 94 H 26 H 144/108 H 92 08/28/23 06:31 93 08/28/23 05:59 96 H 08/28/23 05:46 37.5 C 101 H 24 137/81 85 L O2 Del Method O2 Flow Rate 08/28/23 08:35 Nasal Cannula 2 08/28/23 08:00 Nasal Cannula 2 08/28/23 06:33 Nasal Cannula 2 08/28/23 06:31 Nasal Cannula 2 08/28/23 05:59 08/28/23 05:46 Room Air Laboratory Results 08/28/23 08/28/23 Range/Units 06:25 06:15 WBC 7.19 (4.8-10.8) K/ul RBC 4.49 L (4.70-6.10) M/uL Hgb 14.2 (14.0-18.0) g/dl Hct 43.2 (42.0-52.0) % MCV 96.2 (80.0-100.0) fL MCH 31.6 (25.0-34.0) pg MCHC 32.9 (32.0-36.0) g/dL RDW Std Deviation 48.0 H (36.4-46.3) fL RDW Coeff of Cayla 13.4 (11.5-14.5) % Plt Count 178 (130-400) K/uL MPV 9.4 (9.4-12.4) fL Immature Gran % (Auto) 0.4 % Neut % (Auto) 82.3 % Lymph % (Auto) 6.3 % [place] % (Auto) 10.3 % Eos % (Auto) 0.3 % Baso % (Auto) 0.4 % Neut # (Auto) 5.92 (1.40-6.50) K/uL Lymph # (Auto) 0.45 L (1.20-3.40) K/uL [place] # (Auto) 0.74 H (0.11-0.59) K/uL Eos # (Auto) 0.02 (0.00-0.50) K/uL Baso # (Auto) 0.03 (0.00-0.20) K/uL Immature Gran # (Auto) 0.03 (0.01-0.20) K/uL PT 10.9 (9.0-12.0) Seconds INR 1.0 (0.9-1.1) APTT 29.6 (21.0-31.0) Seconds PTT Ratio 1.0 VBG pH 7.38 (7.36-7.41) VBG pCO2 56 H (38-50) mmHg VBG pO2 46 mmHg VBG HCO3 33 mmol/L VBG O2 Saturation 77.6 % VBG Base Excess 6.3 mEq/L Sodium 135 L (136-145) mmol/L Potassium 4.1 (3.5-5.1) mmol/L Chloride 99 (98-107) mmol/L Carbon Dioxide 30 (21-32) mmol/L Anion Gap 6 (3-11) BUN 18 (6-23) mg/dl Creatinine 0.64 (0.6-1.4) mg/dl Est Cr Clr Drug Dosing 99.1 ml/min Est GFR ( Amer) 115.8 ml/min Est GFR (Non-Af Amer) 99.9 ml/min BUN/Creatinine Ratio 28.1 H (10-20) Glucose 104 H (70-99(Fasting)) mg/dl Lactate 1.1 (0.4-2.0) mmol/L Calcium 8.8 (8.6-10.3) mg/dl Magnesium 1.8 (1.7-2.4) mg/dl Total Bilirubin 0.9 (0.2-1.0) mg/dl Direct Bilirubin 0.1 (0-0.2) mg/dl AST 31 (13-39) U/L ALT 25 (7-52) U/L Alkaline Phosphatase 91 (34-104) U/L Troponin I High Sens 11.2 (0-20) pg/ml Total Protein 7.1 (6.0-8.3) gm/dl Albumin 4.1 (3.4-5.0) gm/dl Procalcitonin < 0.05 (0-0.5) ng/ml Nasal Influ A H1 2008 PCR DETECTED A* (NotDetected) Adenovirus (PCR) Not Detected (NotDetected) B. pertussis DNA (PCR) Not Detected (NotDetected) B.parapertussis DNA PCR Not Detected (NotDetected) C. pneumoniae DNA (PCR) Not Detected (NotDetected) Coronavirus OC43 (PCR) Not Detected (NotDetected) Coronavirus HKU1 (PCR) Not Detected (NotDetected) Coronavirus 229E (PCR) Not Detected (NotDetected) SARS-CoV-2 (PCR) Not Detected (NotDetected) Coronavirus NL63 (PCR) Not Detected (NotDetected) Human Metapneumovir PCR Not Detected (NotDetected) Influenza Type B (PCR) Not Detected (NotDetected) M. pneumoniae (PCR) Not Detected (NotDetected) Parainfluenza 1 (PCR) Not Detected (NotDetected) Parainfluenza 2 (PCR) Not Detected (NotDetected) Parainfluenza 3 (PCR) Not Detected (NotDetected) Parainfluenza 4 (PCR) Not Detected (NotDetected) RSV (PCR) Not Detected (NotDetected) Entero/Rhino (PCR) Not Detected (NotDetected) Diagnostic Findings Chest X-Ray 08/28/23 06:00 XR chest 1V portable HISTORY: 68 years-old Male Sepsis acute sepsis COMPARISON: 08/14/2023 TECHNIQUE: AP view of the chest FINDINGS: Cardiac mediastinal and hilar silhouettes are within normal limits. Mild emphysema with chronic interstitial coarsening. Atherosclerosis of the aorta. No pneumothorax, pleural effusion or airspace consolidation. Spondylotic spurring of the spine. IMPRESSION: No acute process. ACT 112: Negative or not required by law. The above report was generated using voice recognition software. It may contain grammatical, syntax or spelling errors. Electronically signed by: Jordan Strange M.D. 08/28/2023 7:27 AM Medications Administered nebs, solumedrol 125 mg IV, oseltamivir 75 mg Code Status & VTE Plan Code Status discussed with patient, full code VTE Prophylaxis Plan VTE Prophylaxis will be ordered: Yes PG Care Time/CCT Total # of Minutes Spent Total Time Spent with Patient: Total time spent is greater than 50% in coordination of care (as documented) at patient's floor/unit and/or counseling patient: Coding Level of Care Code 54402 INT INP/OBS CARE 2/55MIN Diagnoses Acute respiratory failure with hypoxia J96.01 Influenza A virus subtype H1 2009 pandemic strain present J10.1 Acute exacerbation of chronic obstructive pulmonary disease (COPD) J44.1 Primary hypertension I10 Hypertension type: primary hypertension Current smoker F17.200 (4) HTN (hypertension) Hypertension type: primary hypertension Qualified Code(s): I10 - Essential (primary) hypertension
--- NOTE | 2023-08-28 11:38 | Electrocardiogram Report ---
Test Reason : Blood Pressure : / mmHG Vent. Rate : 092 BPM Atrial Rate : 092 BPM P-R Int : 126 ms QRS Dur : 080 ms QT Int : 384 ms P-R-T Axes : 074 072 074 degrees QTc Int : 474 ms Normal sinus rhythm Normal ECG When compared with ECG of 14-AUG-2023 17:48, Nonspecific T wave abnormality now evident in Lateral leads Confirmed by Mathew Siegel ([id number]) on 08/28/2023 11:38:33 AM Referred By: REFERRED SELF Confirmed By:Gus Siegel
[2023-08-28] MEDS ORDERED: ACETAMINOPHEN 325 MG TAB PO PRN (11:55)
[2023-08-28] MEDS ORDERED: ALUMINUM/MAGNESIUM SUSP 30 ML UDC PO PRN (11:55)
[2023-08-28] MEDS ORDERED: MAGNESIUM HYDROXIDE SUSP 30 ML UDC PO PRN (11:55)
[2023-08-28] MEDS ORDERED: ONDANSETRON INJ 2 MG/ML 2 ML VIAL IV PRN (11:55)
[2023-08-28] MEDS ORDERED: POLYETHYLENE (MIRALAX) 17 GM PACK PO PRN (11:55)
[2023-08-28] MEDS ORDERED: ALBUT/IPRATROP 3MG/0.5MG NEB 3 ML VIAL NEB PRN (11:55)
[2023-08-28] MEDS ORDERED: MELATONIN 3 MG TAB PO PRN (11:55)
[2023-08-28] MEDS: ALBUT/IPRATROP 3MG/0.5MG NEB 3 ML VIAL NEB SCH ×3 (12:19→19:40)
[2023-08-28] MEDS: LORATADINE 10 MG TAB PO SCH (13:08)
[2023-08-28] MEDS: predniSONE 20 MG TAB PO SCH (13:08)
[2023-08-28] MEDS: LACTATED RINGER'S 1,000 ML IV SCH ×2 (13:08→18:10)
[2023-08-28] MEDS: ENOXAPARIN INJ 40 MG/0.4 ML SYR SQ SCH (13:10)
--- NOTE | 2023-08-28 14:20 | Pulmonary Consultation ---
Date of Consultation August 28, 2023 Assessment & Plan (1) Influenza A virus subtype H1 2009 pandemic strain present: (2) History of tobacco use disorder: (3) Acute on chronic respiratory failure with hypoxia: (4) Pulmonary nodule: (5) COPD with emphysema: Emphysema type: unspecified Qualified Code(s): J43.9 - Emphysema, unspecified Plan CT chest 07/02/2023 personally reviewed: Centrilobular emphysema appreciated bilaterally 4 mm right middle lobe pulmonary nodule No pulmonary emboli No mediastinal lymphadenopathy Chest x-ray 08/28/2023 personally reviewed: Portable film, hyperinflated with flattened diaphragm, bilateral costophrenic and cardiophrenic angles are clean, no clear lung infiltrate appreciated 2D echo 07/03/2023: EF 60-65%, grade 1 diastolic dysfunction, RV normal in size and function VBG 08/28/2023: 7.38/56/46 -- Acute respiratory failure with hypoxia, chronic hypercapnic respiratory failure Likely secondary to COPD exacerbation Respiratory bio fire negative for everything except for influenza A Procalcitonin negative -- COPD with emphysema On Anoro inhaler at home along with DuoNebs He did have some confusion on how to use them Would recommend Anoro inhaler to be used on a daily basis along with as needed nebulizers. --Pulmonary nodules 4 mm right middle lobe Repeat screening CT chest scan June 2024 -- Ask smoker > [id number] smoking history, quit May 2023 Importance of quitting explained the patient Plan: Continue with oseltamivir Continue with Anoro while in the hospital Will add hypertonic nebulized saline to help him bring up the phlegm along with Mucinex We usually try to avoid steroids in patients to have flu unless patient is actively wheezing. Would recommend going down on prednisone to 20 mg as soon as tomorrow and gradually titrate off Current exacerbation is most likely from influenza. Will continue with Anoro even on discharge this time along with as needed albuterol. On the office visit we will decide whether he will benefit from Trelegy instead Please note the above document was generated using voice recognition software. It may contain grammatical, syntax or spelling errors.Any formal questions or concerns about the content, text or information contained within the body of this dictation should be directly addressed to the provider for clarification. History of Present Illness Attending Physician: Yolanda Montoya MD History of Present Illness 68-year-old male was admitted to the hospital for cough and shortness of breath Past medical history: Alcohol abuse, hypertension Pulmonary consulted for hypoxia. Patient states that there was some confusion when it comes to his nebulizers and inhalers. He was recently in the hospital and discharged on nebulizers and stopped using Anoro, he followed up with primary doctor who rightly asked him to start Anoro again and nebulizer as needed. Since last 3 to 4 days she was not feeling well. He did have subjective fever with associated headache and lethargy He was checking his oxygen at home and he was desaturating as to in the low 70s. Did have cough and difficulty bringing it up.No hemoptysis No chest pain, no dizziness, no palpitation, no diaphoresis at that time. 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 Asthma: No personal or family history of asthma No history of lung cancer in the family Allergies Allergy/AdvReac Type Severity Reaction Status Date / Time No Known Allergies Allergy Verified 08/26/23 14:00 Home Medications Medication Instructions Recorded Confirmed Type albuterol sulfate 90 mcg/actuation 1 inh inhalation Q6H PRN shortness 07/03/23 08/28/23 Rx breath activated powder inhaler of breath or wheezing #1 ea budesonide 0.5 mg/2 mL suspension 0.5 mg (2 mL) NEB BIDR #30 mL 08/15/23 08/28/23 Rx for nebulization ipratropium 0.5 mg-albuterol 3 mg 3 ml NEB QIDR #50 mL 08/15/23 08/28/23 Rx (2.5 mg base)/3 mL nebulization soln loratadine 10 mg tablet (Claritin) 10 mg PO DAILY #30 tabs 08/15/23 08/28/23 Rx umeclidinium 62.5 mcg-vilanterol 1 inh inhalation DAILY #60 ea 08/21/23 08/28/23 Rx 25 mcg/actuation powdr for inhalation (Anoro Ellipta) telmisartan 20 mg tablet 40 mg PO DAILY 08/28/23 08/28/23 History Patient History Medical History History of tobacco use disorder HTN (hypertension) Surgical History No significant past surgical history Family History Mother Hypertension Father Cancer Other No significant family history Denies family history of Ovarian cancer Prostate cancer Breast cancer Lung cancer Colorectal cancer Social History Smoking Status: Never smoker Tobacco Type: Cigarettes Cigarettes Per Day: 1 pack per day - quit 2 weeks ago; Do You Dip or Chew Tobacco: No; Hx Alcohol Use: No Hx Substance Use: No Preferred Language: Ukrainian Communication Ability: Effective Visual Impairment: No Limitations Hearing Ability: Normal Community Service Technician Required: No Beliefs That Will Affect Care: None marital status: Current Living Situation: Alone current occupational status: employed current occupation: [employer] How many Children do You have: 2 Feels Safe at Home: Yes caffeine: Yes Dental Care, Regularly: No Physical Activity Frequency: Daily Seatbelt Use: always Sunscreen Use: Yes Assistive Devices: None Review of Systems 2 Review of Systems: All systems reviewed & are unremarkable except as noted in HPI & below Physical Exam 2 Physical Exam: Constitutional: No acute distress HEENT: EOMI, PERRLA Respiratory system: Decreased air entry bilaterally, no wheeze, no rhonchi, positive crackles bilateral lower lobes CVS: S1-S2 positive Abdomen: Soft, nontender, nondistended, positive bowel sounds x4 Extremities: +2 pulses bilaterally radialis/ dorsalis pedis, no cyanosis, no edema Neuro: Awake alert oriented x3 Psych: Normal mood and affect G/U: No Christopher Skin: no rashes, warm and dry Lymphatic: no cervical or axillary lymphadenopathy Results & Data Results & Data Vital Signs (Past 12 Hours) Vital Signs Temp Pulse Pulse Resp BP BP Pulse Ox 08/28/23 13:00 98 H 20 121/76 90 08/28/23 12:19 95 H 20 90 08/28/23 11:55 97 H 18 126/75 90 08/28/23 10:08 116 H 08/28/23 09:55 91 08/28/23 08:35 08/28/23 08:00 93 H 43 H 155/91 H 92 08/28/23 06:33 94 H 26 H 144/108 H 92 08/28/23 06:31 93 08/28/23 05:59 96 H 08/28/23 05:46 37.5 C 101 H 24 137/81 85 L O2 Del Method O2 Flow Rate 08/28/23 13:00 Nasal Cannula 4 08/28/23 12:19 Room Air 08/28/23 11:55 Nasal Cannula 4 08/28/23 10:08 08/28/23 09:55 Nasal Cannula 4 08/28/23 08:35 Nasal Cannula 2 08/28/23 08:00 Nasal Cannula 2 08/28/23 06:33 Nasal Cannula 2 08/28/23 06:31 Nasal Cannula 2 08/28/23 05:59 08/28/23 05:46 Room Air Laboratory Results 08/28/23 06:15 08/28/23 06:15 PG Care Time/CCT Total # of Minutes Spent Total Time Spent with Patient: Total time spent is greater than 50% in coordination of care (as documented) at patient's floor/unit and/or counseling patient: Coding Level of Care Code 92155 INT INP/OBS CARE 3/75MIN Diagnoses Influenza A virus subtype H1 2009 pandemic strain present J10.1 History of tobacco use disorder Z87.891 Acute on chronic respiratory failure with hypoxia J96.21 Pulmonary nodule R91.1 COPD with emphysema J43.9 Emphysema type: unspecified
[2023-08-28] MEDS: UMECLIDINIUM/VILANTEROL 62.5/25MCG 7 PUFFS/INHALER INH SCH (16:46)
[2023-08-28] MEDS: BUDESONIDE 0.5 MG/2 ML VIAL (PULMICORT) NEB SCH (19:40)
[2023-08-28] MEDS: OSELTAMIVIR PHOSPHATE 75 MG CAP PO SCH (21:48)
[2023-08-28 22:49] LABS: Appearance Urine Clear (Clear); Bilirubin Urine Negative (Negative); Blood Urine Negative (Negative); Color Urine Dark Yellow; Glucose Urine UA 2+ (Negative); Ketones Urine Trace (Negative); Leukocyte Esterase Urine Negative (Negative); Nitrite Urine Negative (Negative); Protein Urine Negative (Negative); Specific Gravity Urine 1.022 (1.000-1.030); Urobilinogen Urine Negative (Negative); pH Urine 5.5 (4.5-7.5)
[2023-08-29] MEDS: LACTATED RINGER'S 1,000 ML IV SCH (03:45)
[2023-08-29] MEDS: BUDESONIDE 0.5 MG/2 ML VIAL (PULMICORT) NEB SCH ×2 (07:12→19:23)
[2023-08-29] MEDS: ALBUT/IPRATROP 3MG/0.5MG NEB 3 ML VIAL NEB SCH ×4 (07:13→19:23)
[2023-08-29] MEDS: predniSONE 20 MG TAB PO SCH (08:40)
[2023-08-29] MEDS: ENOXAPARIN INJ 40 MG/0.4 ML SYR SQ SCH (08:40)
[2023-08-29] MEDS: OSELTAMIVIR PHOSPHATE 75 MG CAP PO SCH ×2 (08:40→20:14)
[2023-08-29] MEDS: LORATADINE 10 MG TAB PO SCH (08:40)
[2023-08-29] MEDS: LOSARTAN POTASSIUM 50 MG TAB PO SCH (08:40)
[2023-08-29] MEDS: UMECLIDINIUM/VILANTEROL 62.5/25MCG 7 PUFFS/INHALER INH SCH (08:41)
--- NOTE | 2023-08-29 15:50 | Pulmonology Progress Note ---
Date of Service August 29, 2023 Assessment & Plan (1) Influenza A virus subtype H1 2009 pandemic strain present: (2) History of tobacco use disorder: (3) Acute on chronic respiratory failure with hypoxia: (4) Pulmonary nodule: (5) COPD with emphysema: Emphysema type: unspecified Qualified Code(s): J43.9 - Emphysema, unspecified Plan CT chest 07/02/2023 personally reviewed: Centrilobular emphysema appreciated bilaterally 4 mm right middle lobe pulmonary nodule No pulmonary emboli No mediastinal lymphadenopathy Chest x-ray 08/28/2023 personally reviewed: Portable film, hyperinflated with flattened diaphragm, bilateral costophrenic and cardiophrenic angles are clean, no clear lung infiltrate appreciated 2D echo 07/03/2023: EF 60-65%, grade 1 diastolic dysfunction, RV normal in size and function VBG 08/28/2023: 7.38/56/46 -- Acute respiratory failure with hypoxia, chronic hypercapnic respiratory failure Likely secondary to COPD exacerbation Respiratory bio fire negative for everything except for influenza A Procalcitonin negative -- COPD with emphysema On Anoro inhaler at home along with DuoNebs He did have some confusion on how to use them Absolute eosinophil count 90 on 08/14/2023 Would recommend Trelegy 100 inhaler to be used on a daily basis along with as needed nebulizers. --Pulmonary nodules 4 mm right middle lobe Repeat screening CT chest scan June 2024 -- Ask smoker > [id number] smoking history, quit May 2023 Importance of quitting explained the patient Plan: Continue with oseltamivir Continue with Anoro while in the hospital Continue with hypertonic saline and Mucinex Will go down on prednisone to 20 mg as soon as tomorrow and gradually titrate off Given the patient had 2 exacerbation in the last month, although 1 is likely from influenza. I think it is reasonable to discharge the patient on Trelegy [address] Anoro Please note the above document was generated using voice recognition software. It may contain grammatical, syntax or spelling errors.Any formal questions or concerns about the content, text or information contained within the body of this dictation should be directly addressed to the provider for clarification. Admission and Anticipated Discharge Date Admission Date: August 28, 2023 Subjective Patient seen and examined at bedside. No acute distress, no adverse events overnight He was saturating 92% on 2 L nasal cannula Overall he says he is feeling better since coming to the hospital Still complains of cough and occasional difficulty bringing up the phlegm No hemoptysis Fair appetite. No headache, no blurry vision Patient's cousin was also in the room at the time of examination Review of Systems 2 Review of Systems: All systems reviewed & are unremarkable except as noted in Subjective Physical Exam 2 Physical Exam: Constitutional: No acute distress HEENT: EOMI, PERRLA Respiratory system: Decreased air entry bilaterally, no wheeze, no rhonchi, positive crackles bilateral lower lobes CVS: S1-S2 positive Abdomen: Soft, nontender, nondistended, positive bowel sounds x4 Extremities: +2 pulses bilaterally radialis/ dorsalis pedis, no cyanosis, no edema Neuro: Awake alert oriented x3 Psych: Normal mood and affect G/U: No Christopher Skin: no rashes, warm and dry Lymphatic: no cervical or axillary lymphadenopathy Results & Data Results & Data Vital Signs (Past 12 Hours) Vital Signs Temp Pulse Resp BP Pulse Ox O2 Del Method O2 Flow Rate 08/29/23 15:35 90 Nasal Cannula 2 08/29/23 15:35 81 L Room Air 08/29/23 14:33 36.8 C 88 18 158/70 H 92 Nasal Cannula 1 08/29/23 14:19 81 18 90 Nasal Cannula 1 08/29/23 13:32 94 Nasal Cannula 2 08/29/23 11:06 73 18 94 Nasal Cannula 3 08/29/23 08:15 Nasal Cannula 4 08/29/23 07:32 36.5 C 93 H 16 165/80 H 94 Nasal Cannula 4 08/29/23 07:14 70 22 96 Nasal Cannula 4 Laboratory Results 08/28/23 06:15 08/28/23 06:15 PG Care Time/CCT Total # of Minutes Spent Total Time Spent with Patient: Total time spent is greater than 50% in coordination of care (as documented) at patient's floor/unit and/or counseling patient: Coding Level of Care Code 10478 SUB INP/OBS CARE 3/50MIN Diagnoses Influenza A virus subtype H1 2009 pandemic strain present J10.1 History of tobacco use disorder Z87.891 Acute on chronic respiratory failure with hypoxia J96.21 Pulmonary nodule R91.1 COPD with emphysema J43.9 Emphysema type: unspecified
--- NOTE | 2023-08-29 17:33 | Hospitalist Progress Note ---
Date of Service August 29, 2023 Assessment & Plan (1) Acute respiratory failure with hypoxia: Plan: caused by acute influenza A infection and acute exacerbation of COPD, appears to have some baseline hypoxia he acknowledges his usual room air O2 sat is around 90% he is not on home oxygen - supplemental oxygen, treatment as below (2) Influenza A virus subtype H1 2009 pandemic strain present: Plan: high risk of complications because of his underlying lung disease, ordered Tamiflu 75 mg twice daily x 5 days -supportive care, IV fluids x 24h given taking good po so stop, acetaminophen prn fever -states had had influenza vaccine last admission (3) Acute exacerbation of chronic obstructive pulmonary disease (COPD): Plan: Multiple recent admissions for COPD exacerbations At home has budesonide nebs and duonebs, sounds like his control inhaler was stopped to try the nebs, then restarted Anoro recently? 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 No fever overnight. desatted to 70s on his finger oximeter while walking to bathroom without his O2 on Physical Exam Physical Exam: PHYSICAL EXAMINATION Last 24h vital signs reviewed, see documentation in flowsheet General: comfortable appearing, no distress HEENT: Normocephalic, atraumatic, pupils round and equal, sclerae anicteric, no conjunctival injection, moist mucus membranes Lungs: diminished air movement throughout, not wheezing currently, bibasilar coarse sounds, mildly increased resp effort Heart: Regular rate and rhythm, no murmurs. No JVD Abdomen: Soft, nontender, nondistended. Bowel sounds present. Extremities: Warm, dry, well-perfused. No extremity edema. Neuro: Alert and oriented x 4, face symmetric, moves 4 extremities well Psych: Normal affect and behavior Results & Data Results & Data Vital Signs (Past 12 Hours) Vital Signs Temp Pulse Resp BP Pulse Ox O2 Del Method O2 Flow Rate 08/29/23 15:35 90 Nasal Cannula 2 08/29/23 15:35 81 L Room Air 08/29/23 14:33 36.8 C 88 18 158/70 H 92 Nasal Cannula 1 08/29/23 14:19 81 18 90 Nasal Cannula 1 08/29/23 13:32 94 Nasal Cannula 2 08/29/23 11:06 73 18 94 Nasal Cannula 3 08/29/23 08:15 Nasal Cannula 4 08/29/23 07:32 36.5 C 93 H 16 165/80 H 94 Nasal Cannula 4 08/29/23 07:14 70 22 96 Nasal Cannula 4 PG Care Time/CCT Total # of Minutes Spent Total Time Spent with Patient: Total time spent is greater than 50% in coordination of care (as documented) at patient's floor/unit and/or counseling patient: Coding Level of Care Code 30820 SUB INP/OBS CARE 2/35MIN Diagnoses Acute respiratory failure with hypoxia J96.01 Influenza A virus subtype H1 2009 pandemic strain present J10.1 Acute exacerbation of chronic obstructive pulmonary disease (COPD) J44.1 Primary hypertension I10 Hypertension type: primary hypertension Current smoker F17.200 (4) HTN (hypertension) Hypertension type: primary hypertension Qualified Code(s): I10 - Essential (primary) hypertension
[2023-08-29] MEDS: SODIUM CHLOR 7% 4 ML NEB NEB SCH (19:23)
[2023-08-29] MEDS: guaiFENesin 600 MG TABCR PO SCH (20:13)
[2023-08-30] MEDS: ALBUT/IPRATROP 3MG/0.5MG NEB 3 ML VIAL NEB SCH ×4 (07:46→20:35)
[2023-08-30] MEDS: SODIUM CHLOR 7% 4 ML NEB NEB SCH ×2 (07:46→20:35)
[2023-08-30] MEDS: BUDESONIDE 0.5 MG/2 ML VIAL (PULMICORT) NEB SCH ×2 (07:46→20:35)
--- NOTE | 2023-08-30 08:49 | Pulmonology Progress Note ---
Date of Service August 30, 2023 Assessment & Plan (1) Influenza A virus subtype H1 2009 pandemic strain present: (2) History of tobacco use disorder: (3) Acute on chronic respiratory failure with hypoxia: (4) Pulmonary nodule: (5) COPD with emphysema: Emphysema type: unspecified Qualified Code(s): J43.9 - Emphysema, unspecified Plan CT chest 07/02/2023 personally reviewed: Centrilobular emphysema appreciated bilaterally 4 mm right middle lobe pulmonary nodule No pulmonary emboli No mediastinal lymphadenopathy Chest x-ray 08/28/2023 personally reviewed: Portable film, hyperinflated with flattened diaphragm, bilateral costophrenic and cardiophrenic angles are clean, no clear lung infiltrate appreciated 2D echo 07/03/2023: EF 60-65%, grade 1 diastolic dysfunction, RV normal in size and function VBG 08/28/2023: 7.38/56/46 -- Acute respiratory failure with hypoxia, chronic hypercapnic respiratory failure Likely secondary to COPD exacerbation Respiratory bio fire negative for everything except for influenza A Procalcitonin negative -- COPD with emphysema On Anoro inhaler at home along with DuoNebs He did have some confusion on how to use them Absolute eosinophil count 90 on 08/14/2023 Would recommend Trelegy 100 inhaler to be used on a daily basis along with as needed nebulizers. --Pulmonary nodules 4 mm right middle lobe Repeat screening CT chest scan June 2024 --Ex smoker > [id number] smoking history, quit May 2023 Importance of quitting explained the patient Plan: Continue with oseltamivir Continue with Anoro while in the hospital Continue with hypertonic saline and Mucinex Given that he is actively wheezing today, I am going to give 1 dose of Solu- Medrol 40mg Given the patient had 2 exacerbation in the last month, although 1 is likely from influenza. I think it is reasonable to discharge the patient on Trelegy [address] Anoro Please note the above document was generated using voice recognition software. It may contain grammatical, syntax or spelling errors.Any formal questions or concerns about the content, text or information contained within the body of this dictation should be directly addressed to the provider for clarification. Admission and Anticipated Discharge Date Admission Date: August 28, 2023 Subjective Patient seen and examined at bedside. No acute distress, no adverse events overnight He was saturating 92 L on 1 L oxygen at the time of examination. Overall he stated that he is feeling better after I added hypertonic saline. He is bringing up phlegm now. No nausea vomiting Fair appetite Review of Systems 2 Review of Systems: All systems reviewed & are unremarkable except as noted in Subjective Physical Exam 2 Physical Exam: Constitutional: No acute distress HEENT: EOMI, PERRLA Respiratory system: Decreased air entry bilaterally, no rhonchi, positive crackles bilateral lower lobes, positive expiratory wheeze bilaterally CVS: S1-S2 positive Abdomen: Soft, nontender, nondistended, positive bowel sounds x4 Extremities: +2 pulses bilaterally radialis/ dorsalis pedis, no cyanosis, no edema Neuro: Awake alert oriented x3 Psych: Normal mood and affect G/U: No Christopher Skin: no rashes, warm and dry Lymphatic: no cervical or axillary lymphadenopathy Results & Data Results & Data Vital Signs (Past 12 Hours) Vital Signs Temp Pulse Resp BP Pulse Ox O2 Del Method O2 Flow Rate 08/30/23 07:48 77 18 88 L Room Air 08/30/23 07:20 36.8 C 65 16 162/78 H 94 Nasal Cannula 2 08/29/23 21:40 Nasal Cannula 1 Laboratory Results 08/28/23 06:15 08/28/23 06:15 PG Care Time/CCT Total # of Minutes Spent Total Time Spent with Patient: Total time spent is greater than 50% in coordination of care (as documented) at patient's floor/unit and/or counseling patient: Coding Level of Care Code 19129 SUB INP/OBS CARE 3/50MIN Diagnoses Influenza A virus subtype H1 2009 pandemic strain present J10.1 History of tobacco use disorder Z87.891 Acute on chronic respiratory failure with hypoxia J96.21 Pulmonary nodule R91.1 COPD with emphysema J43.9 Emphysema type: unspecified
[2023-08-30] MEDS: ENOXAPARIN INJ 40 MG/0.4 ML SYR SQ SCH (09:15)
[2023-08-30] MEDS: UMECLIDINIUM/VILANTEROL 62.5/25MCG 7 PUFFS/INHALER INH SCH (09:15)
[2023-08-30] MEDS: guaiFENesin 600 MG TABCR PO SCH ×2 (09:16→19:57)
[2023-08-30] MEDS: LORATADINE 10 MG TAB PO SCH (09:16)
[2023-08-30] MEDS: predniSONE 20 MG TAB PO SCH (09:17)
[2023-08-30] MEDS: OSELTAMIVIR PHOSPHATE 75 MG CAP PO SCH ×2 (09:17→19:57)
[2023-08-30] MEDS: LOSARTAN POTASSIUM 50 MG TAB PO SCH (09:17)
[2023-08-30] MEDS ORDERED: methylPREDNISolone 40 MG in SYRINGE 0 ML IV STA (15:16)
--- NOTE | 2023-08-30 17:13 | Hospitalist Progress Note ---
Date of Service August 30, 2023 Assessment & Plan (1) Acute respiratory failure with hypoxia: Plan: caused by acute influenza A infection and acute exacerbation of COPD, appears to have some baseline hypoxia he acknowledges his usual room air O2 sat is around 90% he is not on home oxygen - supplemental oxygen, treatment as below - is hypoxic at baseline now with influenza, will take much time for hypoxia to improve to former poor baseline. Ordered home O2 eval, delivered today. (2) Influenza A virus subtype H1 2009 pandemic strain present: Plan: high risk of complications because of his underlying lung disease, ordered Tamiflu 75 mg twice daily x 5 days -supportive care, IV fluids x 24h given taking good po so stop, acetaminophen prn fever -states had had influenza vaccine last admission (3) Acute exacerbation of chronic obstructive pulmonary disease (COPD): Plan: Multiple recent admissions for COPD exacerbations At home has budesonide nebs and duonebs, sounds like his control inhaler was stopped to try the nebs, then restarted Anoro recently? -prednisone 40 mg daily --> 40 IV x 1 given today per pulm because more wheezy -guaifenasin and hypertonic saline added by pulm - mucus is looser -scheduled and prn duonebs -bid budesonide neb -ordered anoro inhaler tig welder recommends trelegy 100 inhaler daily and prn nebs as outpatient regimen, reviewed recs in today's note 08/30 patient states he has 2x anoro inhalers so tig welder said reasonable to start with that then transition to Trelegy later as outpatient (4) HTN (hypertension): Plan: continue losartan (5) Current smoker: Plan: former smoker stopped smoking this June - encouraged efforts Plan DVT PPx - enox 40 sq Admission and Anticipated Discharge Date Admission Date: August 28, 2023 Subjective continues with wheezing and lots of mucus and cough. no fever overnight. HAAS/hypoxia unchanged Physical Exam Physical Exam: PHYSICAL EXAMINATION Last 24h vital signs reviewed, see documentation in flowsheet General: comfortable appearing, no distress, sitting in bed HEENT: Normocephalic, atraumatic, pupils round and equal, sclerae anicteric, no conjunctival injection, moist mucus membranes Lungs: diminished but improved air movement throughout, ant exp wheeze prominent mike, bibasilar coarse sounds and ronchi, mildly increased resp effort Heart: Regular rate and rhythm, no murmurs. No JVD Abdomen: Soft, nontender, nondistended. Bowel sounds present. Extremities: Warm, dry, well-perfused. No extremity edema. Neuro: Alert and oriented x 4, face symmetric, moves 4 extremities well Psych: Normal affect and behavior Results & Data Results & Data Vital Signs (Past 12 Hours) Vital Signs Temp Pulse Pulse Pulse Pulse Pulse Pulse 08/30/23 15:53 08/30/23 15:46 36.6 C 90 08/30/23 15:22 85 08/30/23 10:28 94 H 08/30/23 10:24 99 H 90 77 70 08/30/23 09:33 08/30/23 07:48 77 08/30/23 07:20 36.8 C 65 Resp Resp Resp Resp Resp BP Pulse Ox 08/30/23 15:53 92 08/30/23 15:46 16 162/83 H 91 08/30/23 15:22 18 91 08/30/23 10:28 18 95 08/30/23 10:24 20 20 18 18 08/30/23 09:33 08/30/23 07:48 18 88 L 08/30/23 07:20 16 162/78 H 94 Pulse Ox Pulse Ox Pulse Ox Pulse Ox O2 Del Method O2 Flow Rate O2 Flow Rate 08/30/23 15:53 Nasal Cannula 1 08/30/23 15:46 Nasal Cannula 1 08/30/23 15:22 Nasal Cannula 1 08/30/23 10:28 Nasal Cannula 1 08/30/23 10:24 86 L 89 L 91 85 L 1 08/30/23 09:33 Nasal Cannula 1 08/30/23 07:48 Room Air 08/30/23 07:20 Nasal Cannula 2 O2 Flow Rate O2 Flow Rate 08/30/23 15:53 08/30/23 15:46 08/30/23 15:22 08/30/23 10:28 08/30/23 10:24 2 1 08/30/23 09:33 08/30/23 07:48 08/30/23 07:20 PG Care Time/CCT Total # of Minutes Spent Total Time Spent with Patient: Total time spent is greater than 50% in coordination of care (as documented) at patient's floor/unit and/or counseling patient: Coding Level of Care Code 61794 SUB INP/OBS CARE 2/35MIN Diagnoses Acute respiratory failure with hypoxia J96.01 Influenza A virus subtype H1 2009 pandemic strain present J10.1 Acute exacerbation of chronic obstructive pulmonary disease (COPD) J44.1 Primary hypertension I10 Hypertension type: primary hypertension Current smoker F17.200 (4) HTN (hypertension) Hypertension type: primary hypertension Qualified Code(s): I10 - Essential (primary) hypertension
[2023-08-31] MEDS: SODIUM CHLOR 7% 4 ML NEB NEB SCH (07:55)
[2023-08-31] MEDS: ALBUT/IPRATROP 3MG/0.5MG NEB 3 ML VIAL NEB SCH ×2 (07:55→12:33)
[2023-08-31] MEDS: BUDESONIDE 0.5 MG/2 ML VIAL (PULMICORT) NEB SCH (07:57)
--- NOTE | 2023-08-31 08:33 | Pulmonology Progress Note ---
Date of Service August 31, 2023 Assessment & Plan (1) Influenza A virus subtype H1 2009 pandemic strain present: (2) History of tobacco use disorder: (3) Acute on chronic respiratory failure with hypoxia: (4) Pulmonary nodule: (5) COPD with emphysema: Emphysema type: unspecified Qualified Code(s): J43.9 - Emphysema, unspecified Plan CT chest 07/02/2023 personally reviewed: Centrilobular emphysema appreciated bilaterally 4 mm right middle lobe pulmonary nodule No pulmonary emboli No mediastinal lymphadenopathy Chest x-ray 08/28/2023 personally reviewed: Portable film, hyperinflated with flattened diaphragm, bilateral costophrenic and cardiophrenic angles are clean, no clear lung infiltrate appreciated 2D echo 07/03/2023: EF 60-65%, grade 1 diastolic dysfunction, RV normal in size and function VBG 08/28/2023: 7.38/56/46 -- Acute respiratory failure with hypoxia, chronic hypercapnic respiratory failure Likely secondary to COPD exacerbation Respiratory bio fire negative for everything except for influenza A Procalcitonin negative -- COPD with emphysema On Anoro inhaler at home along with DuoNebs He did have some confusion on how to use them Absolute eosinophil count 90 on 08/14/2023 Given the patient had 2 exacerbation in the last month, although 1 is likely from influenza. I think it is reasonable to discharge the patient on Trelegy [address] Anoro --Pulmonary nodules 4 mm right middle lobe Repeat screening CT chest scan June 2024 --Ex smoker > [id number] smoking history, quit May 2023 Importance of quitting explained the patient Plan: Continue with oseltamivir Continue with Anoro while in the hospital Continue with hypertonic saline and Mucinex Would recommend prednisone 20 mg for the next 5 days. Trelegy 100 inhaler, 1 puff on a daily basis. No Anoro, no budesonide nebulized on discharge Ipratropium/albuterol nebulizers as needed for shortness of breath along with albuterol inhaler Case was discussed with Dr. Montoya Please note the above document was generated using voice recognition software. It may contain grammatical, syntax or spelling errors.Any formal questions or concerns about the content, text or information contained within the body of this dictation should be directly addressed to the provider for clarification. Admission and Anticipated Discharge Date Admission Date: August 28, 2023 Subjective Patient seen and examined at bedside. No acute distress, no adverse events overnight He was saturating 92% on 1 L nasal cannula at rest Overall he says that he is feeling better compared to yesterday. Shortness of breath is improved Denies any headache, no nausea vomiting Has been bringing up phlegm which is mostly clear. Denies any hemoptysis Review of Systems 2 Review of Systems: All systems reviewed & are unremarkable except as noted in Subjective Physical Exam 2 Physical Exam: Constitutional: No acute distress HEENT: EOMI, PERRLA Respiratory system: Decreased air entry bilaterally, no rhonchi, positive crackles bilateral lower lobes, no wheeze CVS: S1-S2 positive Abdomen: Soft, nontender, nondistended, positive bowel sounds x4 Extremities: +2 pulses bilaterally radialis/ dorsalis pedis, no cyanosis, no edema Neuro: Awake alert oriented x3 Psych: Normal mood and affect G/U: No Christopher Skin: no rashes, warm and dry Lymphatic: no cervical or axillary lymphadenopathy Results & Data Results & Data Vital Signs (Past 12 Hours) Vital Signs Temp Pulse Pulse Resp BP Pulse Ox O2 Del Method 08/31/23 07:58 18 93 Nasal Cannula 08/31/23 07:33 36.5 C 76 16 190/91 H 93 Nasal Cannula 08/31/23 06:13 84 159/80 H 08/30/23 22:14 Nasal Cannula 08/30/23 21:13 36.7 C 99 H 18 181/80 H 91 Nasal Cannula 08/30/23 20:36 83 18 92 Nasal Cannula O2 Flow Rate 08/31/23 07:58 08/31/23 07:33 1 08/31/23 06:13 08/30/23 22:14 1 08/30/23 21:13 1 08/30/23 20:36 1 Laboratory Results 08/28/23 06:15 08/28/23 06:15 PG Care Time/CCT Total # of Minutes Spent Total Time Spent with Patient: Total time spent is greater than 50% in coordination of care (as documented) at patient's floor/unit and/or counseling patient: Coding Level of Care Code 97390 SUB INP/OBS CARE 2/35MIN Diagnoses Influenza A virus subtype H1 2009 pandemic strain present J10.1 History of tobacco use disorder Z87.891 Acute on chronic respiratory failure with hypoxia J96.21 Pulmonary nodule R91.1 COPD with emphysema J43.9 Emphysema type: unspecified
[2023-08-31] MEDS: UMECLIDINIUM/VILANTEROL 62.5/25MCG 7 PUFFS/INHALER INH SCH (09:21)
[2023-08-31] MEDS: guaiFENesin 600 MG TABCR PO SCH (09:23)
[2023-08-31] MEDS: predniSONE 20 MG TAB PO SCH (09:23)
[2023-08-31] MEDS: LOSARTAN POTASSIUM 50 MG TAB PO SCH (09:23)
[2023-08-31] MEDS: OSELTAMIVIR PHOSPHATE 75 MG CAP PO SCH (09:24)
[2023-08-31] MEDS: LORATADINE 10 MG TAB PO SCH (09:24)
[2023-08-31] MEDS: ENOXAPARIN INJ 40 MG/0.4 ML SYR SQ SCH (09:25)
--- NOTE | 2023-08-31 10:00 | Discharge Summary ---
Date of Service August 31, 2023 Admission HPI Per Admitting Provider 68 y/o with history of COPD / emphysema who presented to the ED with two days of increased cough and hypoxia. He states his O2 sats were in the 70s at home. Reviewed recent PCP note and his baseline is likely 88-90% on room air. In the ED he was 85% on room air and improved to 92% on 2L pnc. he has had multiple admissions since the summer with COPD exacerbations, left the hospital around 2 weeks ago. He was doing fairly well and there were some changes made to his bronchodilators, however that did not seem to help. 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 2 days ago he developed increasing shortness of breath cough and fever. He checked his oxygen level and it was severely low as noted above. Thus he sought care in the emergency department. he says that he felt very wheezy tight and short of breath when he got to the ED, however that had improved somewhat with the ED treatment of IV Solu-Medrol and bronchodilators. He thinks he had his flu shot this year he is not sure about COVID shot. He denies any sick contacts although his cousin who is at the bedside points out that he was at gatherings/meetings over the weekend and he could have gotten exposed there. No chest or abdominal pain, no rashes or joint pain, no N/V/D, no dysuria. Principal Diagnosis Acute exacerbation of COPD and acute hypoxic respiratory failure due to influenza A Discharge Exam PHYSICAL EXAMINATION Last 24h vital signs reviewed, see documentation in flowsheet General: comfortable appearing, no distress, sitting in bed HEENT: Normocephalic, atraumatic, pupils round and equal, sclerae anicteric, no conjunctival injection, moist mucus membranes Lungs: diminished but improved air movement throughout, no wheezes today, bibasilar coarse sounds and ronchi improved, mildly increased resp effort Heart: Regular rate and rhythm, no murmurs. No JVD Abdomen: Soft, nontender, nondistended. Bowel sounds present. Extremities: Warm, dry, well-perfused. No extremity edema. Neuro: Alert and oriented x 4, face symmetric, moves 4 extremities well Psych: Normal affect and behavior Discharge Data Allergies Allergy/AdvReac Type Severity Reaction Status Date / Time No Known Allergies Allergy Verified 08/26/23 14:00 Consultations 08/28/23 08:05 ED Decision to Admit Stat 08/28/23 13:31 Consult Pulmonology Routine Ordered Studies Chest X-Ray 08/28/23 06:00 XR chest 1V portable HISTORY: 68 years-old Male Sepsis acute sepsis COMPARISON: 08/14/2023 TECHNIQUE: AP view of the chest FINDINGS: Cardiac mediastinal and hilar silhouettes are within normal limits. Mild emphysema with chronic interstitial coarsening. Atherosclerosis of the aorta. No pneumothorax, pleural effusion or airspace consolidation. Spondylotic spurring of the spine. IMPRESSION: No acute process. ACT 112: Negative or not required by law. The above report was generated using voice recognition software. It may contain grammatical, syntax or spelling errors. Electronically signed by: Jordan Strange M.D. 08/28/2023 7:27 AM 08/28/23 06:15 08/28/23 06:15 Hospital Course (1) Acute respiratory failure with hypoxia: caused by acute influenza A infection and acute exacerbation of COPD, has baseline hypoxia he acknowledges his usual room air O2 sat is around 90% at rest he is not on home oxygen - supplemental oxygen, treatment as below - is hypoxic at baseline now with influenza, will take much time for hypoxia to improve to former poor baseline. Ordered home O2 - 1L at rest, 2L with exertion. (2) Influenza A virus subtype H1 2009 pandemic strain present: high risk of complications because of his underlying lung disease, ordered Tamiflu 75 mg twice daily x 5 days -acetaminophen prn fever -afebrile by time of discharge -states had had influenza vaccine last admission (3) Acute exacerbation of chronic obstructive pulmonary disease (COPD): Multiple recent admissions for COPD exacerbations At home has budesonide nebs and duonebs, sounds like his control inhaler was stopped to try the nebs, then restarted Anoro recently? -solumedrol/prednisone while in hospital - not wheezing day of discharge -guaifenasin and hypertonic saline added by pulm in hospital - mucus is looser -scheduled and prn duonebs -prednisone 20 mg daily x 7 days at discharge copy lathe tender recommends stop anoro, start trelegy 100 inhaler daily and prn nebs as outpatient regimen, discussed with Dr. Smith today (4) HTN (hypertension): continue losartan (5) Current smoker: former smoker stopped smoking this June - encouraged efforts Total Time Total Time Spent Total Time Spent (In Minutes): 40 minutes coordinating care for discharge Discharge Plan Discharge Items Patient Disposition: Home - Self-Care Reason For Visit: INFLUENZA, COPD EXACERBATION Discharge Diagnosis: COPD exacerbation due to influenza A, acute hypoxic respiratory failure Activity: Resume your previous activity Non-emergency contact: Primary Care Provider and Dining Host Call non-emergency contact if: you have any medication questions and your symptoms worsen Follow-up/Referrals: Eder Smith MD, FCCP [Physician] - Cb Cardoza DO [Primary Care Provider] - 09/09/23 11:00 am Diet: Regular Addtl Attending Provider Instructions: Good job quitting smoking! Use your home oxygen - 1L at rest and 2L with activity Come back to the ER if you have severe shortness of breath, chest pain Finish the course of tamiflu and prednisone Your copy lathe tender recommended the following regimen: STOP Anoro, STOP budesonide nebs Trelegy inhaler once a day Duonebs (albuterol-ipratropium) as needed for shortness of breath or wheezing Wear a mask around others for the next week or so Pending Studies at Discharge: No Stand-Alone Forms: [facility], Smoking Cessation Medications and DC Order Prescriptions: New oseltamivir [Tamiflu] 75 mg Capsule 75 mg PO BID Qty: 4 0RF prednisone 20 mg Tablet 20 mg PO QAM Qty: 7 0RF guaifenesin 100 mg/5 mL liquid 200 mg PO Q4H PRN (Reason: cough) Qty: 473 0RF Rx Instructions: buy over the counter Trelegy Ellipta 100-62.5-25 mcg blister with device 1 inh inhalation DAILY Qty: 60 1RF Continued budesonide 0.5 mg/2 mL Suspension For Nebulization 0.5 mg NEB BIDR Qty: 30 0RF loratadine [Claritin] 10 mg tablet 10 mg PO DAILY Qty: 30 1RF telmisartan 20 mg tablet 40 mg PO DAILY albuterol sulfate 90 mcg/actuation aerosol powdr breath activated 1 inh inhalation Q6H PRN (Reason: shortness of breath or wheezing) Qty: 1 0RF Changed ipratropium-albuterol 0.5 mg-3 mg(2.5 mg base)/3 mL Solution For Nebulization 3 ml NEB QIDR PRN (Reason: shortness of breath or wheezing) Qty: 50 0RF Discontinued Anoro Ellipta 62.5-25 mcg/actuation blister with device 1 inh inhalation DAILY Qty: 60 2RF Discharge Orders: Discharge Order (Routine); Ordered 08/31/23 Ordered By: Yolanda Montoya Admission Data Admit Date/Time: 08/28/23 09:49 Attending Provider: Yolanda Montoya Admit Provider: Yolanda Montoya Primary Care Provider: Cb Cardoza Other Providers: Yolanda Montoya; Schuyler Josue; Oc Nelson; Coy Roche; Eder Smith; Marsha Garza; Tiera Tapia; Shay Damon; Yvon Da Silva; Sophia Puente Other Interventions: Discharge Summary Assessment (RN) Last Done: 08/31/23 13:22 Coding Level of Care Code 92276 INP/OBS DISCH >30 MIN Diagnoses Acute respiratory failure with hypoxia J96.01 Influenza A virus subtype H1 2009 pandemic strain present J10.1 Acute exacerbation of chronic obstructive pulmonary disease (COPD) J44.1 Primary hypertension I10 Hypertension type: primary hypertension Current smoker F17.200
== END 2023-08-31 13:30 | disposition home or self-care (01) | DRG 190 ==
LOC: ED 05:41 → EDINP 05:41 → 3E 17:01